=== PATIENT | male | born 1970 | race American Indian/Alaskan Native ===

== ENCOUNTER 2017-03-23 17:13 | Emergency (ER) | payer BC, MEDICAID ==
[2017-03-23 17:37] VITALS: BP 153/86
[2017-03-23] MEDS ORDERED: cefTRIAXone 250 MG, Lidocaine 1% 0.9 ML IM ONE ×2 (18:19)
[2017-03-23] MEDS ORDERED: metroNIDAZOLE 250 MG Tab PO ONE (18:19)
[2017-03-23] MEDS ORDERED: Azithromycin 250 MG Tab PO ONE (18:23)
[2017-03-23] MEDS ORDERED: Ondansetron 4 MG Tab.DIS PO ONE (18:23)
--- NOTE | 2017-03-23 18:35 | EDM.PDOC ---
Scribed by Paola Perez 03/23/17 1832 for Reynaldo Powell MD ED HPI GENERAL MEDICAL PROBLEM - General Chief Complaint: Genitourinary Problem Stated Complaint: URINARY PAIN, [id number] Time Seen by Provider: 03/23/17 17:22 Source of Information: Reports: Patient, RN, RN Notes Reviewed History Limitations: Reports: No Limitations - History of Present Illness INITIAL COMMENTS - FREE TEXT/NARRATIVE: Patient presents to the ER by POV with complaint of "urinary pain". He has had 4 days of urgency and penile pain. Quality: Reports: Ache Severity: Severe Improves with: Reports: None Worsens with: Reports: None Associated Symptoms: Reports: No Other Symptoms Penis Pain Score (Numeric/FACES): 5 - Related Data Allergies Allergy/AdvReac Type Severity Reaction Status Date / Time nafcillin AdvReac Intermediate Red rash. Verified 03/23/17 17:24 Home Meds: Home Meds Aspirin [Halfprin] 81 mg PO DAILY 04/27/13 [History] Insulin Aspart [Novolog Flexpen] 18 units SQ TID 04/27/13 [History] Insulin Detemir [Levemir Flexpen] 25 units SQ BID 04/27/13 [History] Pregabalin [Lyrica] 1 tab PO BID 03/23/17 [History] Vit D3/Folic Acid/B2/B6/B12 [Folgard Tablet] 1 tab PO DAILY 03/23/17 [History] Past Medical History Respiratory History: Reports: Other (See Below) (pneumonia. Staph infection of lungs in 2013.) Gastrointestinal History: Reports: GERD, Other (See Below) (hepatosplenomegaly. Ascites. Hep C.) Musculoskeletal History: Reports: Fracture (elbow, scapula and jaw.) Neurological History: Reports: Neuropathy, Peripheral Endocrine/Metabolic History: Reports: Diabetes, Type II Hematologic History: Reports: Other (See Below) (Vitamin D deficiency.) - Past Surgical History GI Surgical History: Reports: Appendectomy Social & Family History - Tobacco Use Smoking Status *Q: Never Smoker Years of Tobacco use: 25 Used Tobacco, but Quit: Yes Month Tobacco Last Used: february Second Hand Smoke Exposure: No - Alcohol Use Days Per Week of Alcohol Use: 0 - Recreational Drug Use Recreational Drug Use: No Drug Use in Last 12 Months: No Recreational Drug Type: Reports: Cocaine, LSD (Acid), Marijuana/Hashish, Opium, Psilocybin (Mushrooms) Recreational Drug Use Frequency: Not Used In Over 6 Months Recreational Drug Last Use: 2005 ED ROS GENERAL - Review of Systems Review Of Systems: ROS reveals no pertinent complaints other than HPI. ED EXAM, RENAL/ - Physical Exam Exam: See Below Exam Limited By: No Limitations General Appearance: Obese Respiratory/Chest: No Respiratory Distress, Lungs Clear, Normal Breath Sounds, No Accessory Muscle Use, Chest Non-Tender Cardiovascular: Normal Peripheral Pulses, Regular Rate, Rhythm, No Edema, No Gallop, No JVD, No Murmur, No Rub GI/Abdominal: Other (benign obese abdomen) Back Exam: Normal Inspection, Full Range of Motion, NT Extremities: Normal Inspection, Normal Range of Motion, Non-Tender, Normal Capillary Refill, No Pedal Edema Neurological: No Motor/Sensory Deficits Psychiatric: Normal Affect, Normal Mood Skin Exam: Warm, Dry, Intact, Normal Color, No Rash Course - Vital Signs Last Recorded V/S: Last Vital Signs Temp 37.2 C 03/23/17 17:31 Pulse 90 03/23/17 17:31 Resp 18 03/23/17 17:31 BP 153/86 H 03/23/17 17:31 Pulse Ox 99 03/23/17 17:31 - Orders/Labs/Meds Orders: Active Orders 24 hr Category Date Time Status CHLAMYDIA AND GONORRHEA BY TMA Routine Lab 03/23/17 17:22 Received Labs: Laboratory Tests 03/23/17 03/23/17 Range/Units 17:22 17:22 Urine Color Yellow (YELLOW) Urine Appearance Cloudy (CLEAR) Urine pH 5.0 (5.0-9.0) Ur Specific [place] 1.015 (1.005-1.030) Urine Protein 100 H (NEGATIVE) Urine Glucose (UA) 500 H (NEGATIVE) Urine Ketones Negative (NEGATIVE) Urine Occult Blood Moderate H (NEGATIVE) Urine Nitrite Negative (NEGATIVE) Urine Bilirubin Negative (NEGATIVE) Urine Urobilinogen 0.2 (0.2-1.0) mg/dL Ur Leukocyte Esterase Negative (NEGATIVE) Urine RBC 10-20 H /HPF Urine WBC 5-10 H (0-5/HPF) /HPF Ur Epithelial Cells Moderate H /HPF Urine Bacteria Rare (0-FEW/HPF) /HPF Urine Mucus Few H /LPF Urine Trichomonas Present H (0/HPF) /HPF Urine Opiates Screen Negative (NEGATIVE) Ur Oxycodone Screen Negative (NEGATIVE) Urine Methadone Screen Negative (NEGATIVE) Ur Barbiturates Screen Negative (NEGATIVE) U Tricyclic Antidepress Negative (NEGATIVE) Ur Phencyclidine Scrn Negative (NEGATIVE) Ur Amphetamine Screen Negative (NEGATIVE) U Methamphetamines Scrn Negative (NEGATIVE) Urine MDMA Screen Negative (NEGATIVE) U Benzodiazepines Scrn Negative (NEGATIVE) Urine Cocaine Screen Negative (NEGATIVE) U Marijuana (THC) Screen Negative (NEGATIVE) Meds: Medications Discontinued Medications Generic Name Dose Route Start Last Admin Trade Name Nic PRN Reason Stop Dose Admin Azithromycin 1,000 mg 03/23/17 18:23 Zithromax PO 03/23/17 18:24 ONETIME ONE Ceftriaxone Sodium 250 mg/ 0 mg 03/23/17 18:19 Lidocaine HCl 0.9 ml IM 03/23/17 18:20 ONETIME ONE Metronidazole 2,000 mg 03/23/17 18:19 Metronidazole PO 03/23/17 18:20 ONETIME ONE Ondansetron HCl 4 mg 03/23/17 18:23 Zofran Odt PO 03/23/17 18:24 ONETIME ONE Departure - Departure Time of Disposition: 18:28 Disposition: Home, Self-Care 01 Condition: Good Clinical Impression: Trichomoniasis, urogenital - Discharge Information Instructions: Trichomoniasis Forms: ED Department Discharge Additional Instructions: Follow up in clinic next week for urine recheck and to check on urine culture. - My Orders Last 24 Hours: My Active Orders 03/23/17 17:22 CHLAMYDIA AND GONORRHEA BY TMA Routine - Assessment/Plan Last 24 Hours: My Active Orders 03/23/17 17:22 CHLAMYDIA AND GONORRHEA BY TMA Routine I have read and agree with the documentation that has been completed regarding this visit. By signing this record, I attest that the documentation was completed in my physical presence and is an accurate record of the encounter.
== END 2017-03-23 19:05 | disposition home or self-care (01) ==
LOC: DL.ED 17:13
DX: A59.00 Urogenital trichomoniasis, unspecified (principal); E11.42 Type 2 diabetes mellitus with diabetic polyneuropathy; Z87.891 Personal history of nicotine dependence; Z79.4 Long term (current) use of insulin; Z79.82 Long term (current) use of aspirin; Z88.1 Allergy status to other antibiotic agents
CPT/HCPCS: 80305; 81001; 87491; 87591; 96372; 99283; A9270; J0696

== ENCOUNTER 2020-02-09 21:59 | Emergency (ER) | payer MEDICARE, MEDICAID ==
--- NOTE | 2020-02-09 22:13 | EDM.PDOC ---
ED HPI GENERAL MEDICAL PROBLEM - General Chief Complaint: Upper Extremity Injury/Pain Stated Complaint: SLIPPED AND FELL LANDED ON RIBS Time Seen by Provider: 02/09/20 22:11 Source of Information: Reports: Patient History Limitations: Reports: No Limitations - History of Present Illness INITIAL COMMENTS - FREE TEXT/NARRATIVE: fell onto right ribs Right Trunk Pain Score (Numeric/FACES): 7 - Related Data Allergies Allergy/AdvReac Type Severity Reaction Status Date / Time Iodine and Iodide Containing Allergy Severe Rash Verified 02/09/20 22:14 Produc chlorhexidine Allergy Intermediate Rash Verified 02/09/20 22:14 gabapentin Allergy Hives Verified 02/09/20 22:14 nafcillin AdvReac Intermediate Red rash. Verified 02/09/20 22:14 Home Meds: Home Meds Aspirin [Halfprin] 81 mg PO DAILY 04/27/13 [History] Insulin Detemir [Levemir Flexpen] 20 units SQ BID 04/27/13 [History] Allopurinol [Zyloprim] 1 tab PO DAILY 03/23/17 [History] Ascorbate Calcium [Vitamin C] 1 tab PO BID 03/23/17 [History] Fenofibric Acid (Choline) [Fenofibric Acid] 1 tab PO DAILY 03/23/17 [History] Furosemide [Lasix] 80 mg PO BID 03/23/17 [History] Magnesium Oxide 1 tab PO DAILY 03/23/17 [History] Pantoprazole Sodium 40 mg PO DAILY 03/23/17 [History] Pregabalin [Lyrica] 50 mg PO BID 03/23/17 [History] Vit D3/Folic Acid/B2/B6/B12 [Folgard Tablet] 1 tab PO DAILY 03/23/17 [History] Calcium Acetate [PhosLo] 3 cap PO TIDAC 09/21/19 [History] Metoprolol Tartrate 12.5 mg PO BID 09/21/19 [History] Pregabalin [Lyrica] 200 mg PO DAILY 09/21/19 [History] metOLazone [Metolazone] 1 tab PO DAILY 09/21/19 [History] Past Medical History HEENT History: Reports: Other (See Below) Other HEENT History: retinal neuropathy Cardiovascular History: Reports: Hypertension Respiratory History: Reports: Other (See Below) Gastrointestinal History: Reports: GERD Genitourinary History: Reports: Acute Renal Failure, Dialysis Musculoskeletal History: Reports: Fracture Neurological History: Reports: Neuropathy, Peripheral Psychiatric History: Reports: Anxiety Endocrine/Metabolic History: Reports: Diabetes, Type II Hematologic History: Reports: Other (See Below) Oncologic (Cancer) History: Reports: None Dermatologic History: Reports: None - Infectious Disease History Infectious Disease History: Reports: Chicken Pox, Hepatitis C - Past Surgical History GI Surgical History: Reports: Appendectomy Social & Family History - Family History Family Medical History: Noncontributory - Caffeine Use Caffeine Use: Reports: Soda Review of Systems - Review of Systems Review Of Systems: Comprehensive ROS is negative, except as noted in HPI. ED EXAM, GENERAL - Physical Exam Exam: See Below Exam Limited By: No Limitations General Appearance: Alert, WD/WN, Mild Distress, Other (discomfort) Ears: Hearing Grossly Normal Throat/Mouth: Normal Voice, No Airway Compromise Head: Atraumatic Neck: Non-Tender, Full Range of Motion Respiratory/Chest: No Respiratory Distress, Other (right lateral rib 6-7-8 region tender, no ecchymosis/crepitus) Cardiovascular: Regular Rate, Rhythm GI/Abdominal: Soft, Non-Tender (Male) Exam: Deferred Rectal (Males) Exam: Deferred Neurological: Alert, Oriented, Normal Cognition, Normal Gait, No Motor/Sensory Deficits Psychiatric: Flat Affect Skin Exam: Warm, Dry, Normal Color Lymphatic: No Adenopathy Course - Vital Signs Last Recorded V/S: Last Vital Signs Temp 36.3 C 02/09/20 22:10 Pulse 86 02/09/20 22:10 Resp 16 02/09/20 22:10 BP 152/73 H 02/09/20 22:10 Pulse Ox 95 02/09/20 22:10 - Re-Assessments/Exams Free Text/Narrative Re-Assessment/Exam: 02/09/20 22:52 results discussed with pt. Departure - Departure Time of Disposition: 22:52 Disposition: Home, Self-Care 01 Condition: Good Clinical Impression: Contusion of rib on right side Qualifiers: Encounter type: initial encounter Qualified Code(s): S20.211A - Contusion of right front wall of thorax, initial encounter - Discharge Information Instructions: Rib Contusion Forms: ED Department Discharge, ED Return to Work/School Form Additional Instructions: 1) avoid bending lifting straining 2) take tylenol or motrin for discomfort 3) follow up at clinic Sepsis Event Note (ED) - Evaluation Sepsis Screening Result: No Definite Risk - Focused Exam Vital Signs: Vital Signs Temp Pulse Resp BP Pulse Ox 02/09/20 22:10 36.3 C 86 16 152/73 H 95
[2020-02-09 22:16] VITALS: BP 152/73; PULSE 86
--- NOTE | 2020-02-09 22:42 | CR ---
PROCEDURE INFORMATION: Exam: XR Right Ribs with PA Chest, 3 Views Exam date and time: 02/09/2020 10:19 PM Age: 49 years old Clinical indication: Other: Bb medeiros area of pain from fall; Additional info: Fell onto it TECHNIQUE: Imaging protocol: XR Right ribs 3 views with PA chest. COMPARISON: No relevant prior studies available. FINDINGS: Tubes, catheters and devices: Right chest tunnel dialysis catheter is noted. Lungs: Lungs are clear. No infiltrates or edema. Pleural space: No pleural effusions. Heart/Mediastinum: Mild cardiomegaly. Bones/joints: Right ribs are unremarkable. No fracture. A BB marker placed at the site of focal point tenderness. There is no bony abnormality in this region. IMPRESSION: 1. No evidence of rib fracture. 2. Clear lungs and pleural space. 3. Right chest tunneled dialysis catheter.
== END 2020-02-09 22:56 | disposition home or self-care (01) ==
LOC: DL.ED 21:59
DX: S20.211A Contusion of right front wall of thorax, initial encounter (principal); I10 Essential (primary) hypertension; E11.42 Type 2 diabetes mellitus with diabetic polyneuropathy; K21.9 Gastro-esophageal reflux disease without esophagitis; Z90.49 Acquired absence of other specified parts of digestive tract; Z88.1 Allergy status to other antibiotic agents; Z88.8 Allergy status to other drugs, medicaments and biological substances; Z79.82 Long term (current) use of aspirin; Z79.899 Other long term (current) drug therapy; W01.0XXA Fall on same level from slipping, tripping and stumbling without subsequent striking against object, initial encounter
CPT/HCPCS: 71101-RT; 99282; 99283-25

== ENCOUNTER 2020-05-18 22:14 | Emergency (ER) | payer MEDICARE, MEDICAID ==
[2020-05-18 23:26] VITALS: BP 107/71; PULSE 88
[2020-05-18] MEDS: Sodium Chloride 0.9% 1,000 ML IV ONE (23:27)
[2020-05-18] MEDS: Clindamycin Phosphate 900 MG in Sodium Chloride 0.9% 100 ML IV ONE (23:28)
[2020-05-18 23:46] LABS: ANION GAP 18.8 mEq/L (7-13)
--- NOTE | 2020-05-19 00:25 | EDM.PDOC ---
ED HPI GENERAL MEDICAL PROBLEM - General Chief Complaint: Skin Complaint Stated Complaint: TEMP. 100.6 , INFECTION ON THE HANDS Time Seen by Provider: 05/19/20 00:20 Source of Information: Reports: Patient History Limitations: Reports: No Limitations - History of Present Illness INITIAL COMMENTS - FREE TEXT/NARRATIVE: c/o infection on fingers Left Hand Pain Score (Numeric/FACES): 3 Right Hand Pain Score (Numeric/FACES): 3 - Related Data Allergies Allergy/AdvReac Type Severity Reaction Status Date / Time Iodine and Iodide Containing Allergy Severe Rash Verified 05/18/20 23:12 Produc chlorhexidine Allergy Intermediate Rash Verified 05/18/20 23:12 gabapentin Allergy Hives Verified 05/18/20 23:12 nafcillin AdvReac Intermediate Red rash. Verified 05/18/20 23:12 Home Meds: Home Meds Aspirin [Halfprin] 81 mg PO DAILY 04/27/13 [History] Insulin Detemir [Levemir Flexpen] 20 units SQ BID 04/27/13 [History] Allopurinol [Zyloprim] 1 tab PO DAILY 03/23/17 [History] Ascorbate Calcium [Vitamin C] 1 tab PO BID 03/23/17 [History] Fenofibric Acid (Choline) [Fenofibric Acid] 1 tab PO DAILY 03/23/17 [History] Furosemide [Lasix] 80 mg PO BID 03/23/17 [History] Magnesium Oxide 1 tab PO DAILY 03/23/17 [History] Pantoprazole Sodium 40 mg PO DAILY 03/23/17 [History] Pregabalin [Lyrica] 50 mg PO BID 03/23/17 [History] Vit D3/Folic Acid/B2/B6/B12 [Folgard Tablet] 1 tab PO DAILY 03/23/17 [History] Calcium Acetate [PhosLo] 3 cap PO TIDAC 09/21/19 [History] Metoprolol Tartrate 12.5 mg PO BID 09/21/19 [History] Pregabalin [Lyrica] 200 mg PO DAILY 09/21/19 [History] metOLazone [Metolazone] 1 tab PO DAILY 09/21/19 [History] Past Medical History HEENT History: Reports: Other (See Below) Other HEENT History: retinal neuropathy Cardiovascular History: Reports: Hypertension Respiratory History: Reports: Other (See Below) Gastrointestinal History: Reports: GERD Genitourinary History: Reports: Acute Renal Failure, Dialysis, Diabetic Nephropathy Musculoskeletal History: Reports: Fracture Neurological History: Reports: Neuropathy, Peripheral Psychiatric History: Reports: Anxiety Endocrine/Metabolic History: Reports: Diabetes, Type II Hematologic History: Reports: Other (See Below) Oncologic (Cancer) History: Reports: None Dermatologic History: Reports: None - Infectious Disease History Infectious Disease History: Reports: Chicken Pox, Hepatitis C, MRSA - Past Surgical History GI Surgical History: Reports: Appendectomy Other GI Surgeries/Procedures: umbilical hernia Social & Family History - Family History Family Medical History: No Pertinent Family History - Tobacco Use Tobacco Use Status *Q: Never Tobacco User Second Hand Smoke Exposure: No - Caffeine Use Caffeine Use: Reports: None - Recreational Drug Use Recreational Drug Use: No ED ROS GENERAL - Review of Systems Review Of Systems: Comprehensive ROS is negative, except as noted in HPI. ED EXAM, SKIN/RASH Exam: See Below Exam Limited By: No Limitations General Appearance: Alert, WD/WN, Mild Distress, Other (discomfort) Ears: Hearing Grossly Normal Throat/Mouth: Normal Voice, No Airway Compromise Head: Atraumatic Neck: Non-Tender, Full Range of Motion Respiratory/Chest: No Respiratory Distress Cardiovascular: Regular Rate, Rhythm GI/Abdominal: Soft, Non-Tender (Male) Exam: Deferred Rectal (Males) Exam: Deferred Extremities: Other (right fingers cellulitis) Neurological: Alert, Oriented, Normal Cognition, Normal Gait, No Motor/Sensory Deficits Psychiatric: Normal Affect, Normal Mood Skin: Warm, Dry, Normal Color Location, Skin: Upper Extremity, Right Characteristics: Erythematous Associated features: Tenderness, Swelling, Inflammation. No: Lymphangitis Lymphatic: No Adenopathy Course - Vital Signs Last Recorded V/S: Last Vital Signs Temp 38.6 C H 05/18/20 23:12 Pulse 88 05/18/20 23:12 Resp 20 05/18/20 23:12 BP 107/71 05/18/20 23:12 Pulse Ox 94 L 05/18/20 23:12 - Orders/Labs/Meds Orders: Active Orders 24 hr Category Date Time Status CULTURE BLOOD [BC] Stat Lab 05/18/20 23:20 Received CULTURE WOUND [RM] Stat Lab 05/18/20 23:19 Received Labs: Laboratory Tests 05/18/20 05/18/20 05/18/20 Range/Units 23:20 23:20 23:20 WBC 7.5 (5.0-10.0) 10^3/uL RBC 3.23 L (4.6-6.2) 10^6/uL Hgb 10.5 L (14.0-18.0) g/dL Hct 30.9 L (40.0-54.0) % MCV 95.7 (80-100) fL MCH 32.5 (27.0-34.0) pg MCHC 34.0 (33.0-35.0) g/dL Plt Count 116 L (150-450) 10^3/uL Neut % (Auto) 82.2 H (42.2-75.2) % Lymph % (Auto) 6.3 L (20.5-50.1) % Sharp % (Auto) 11.3 H (2-8) % Eos % (Auto) 0.1 L (1.0-3.0) % Baso % (Auto) 0.1 (0.0-1.0) % Add Manual Diff Yes Neutrophils % (Manual) 75 (42-75) % Band Neutrophils % 10 % Lymphocytes % (Manual) 5 L (20-50) % Monocytes % (Manual) 10 H (2-8) % Sodium 133 L (136-145) mmol/L Potassium 3.8 (3.5-5.1) mmol/L Chloride 94 L (98-107) mmol/L Carbon Dioxide 24 (21-32) mmol/L Anion Gap 18.8 H (7-13) mEq/L BUN 51 H (7-18) mg/dL Creatinine 9.75 H* (0.70-1.30) mg/dL Est Cr Clr Drug Dosing 8.38 mL/min Estimated GFR (MDRD) 6 BUN/Creatinine Ratio 5.2 (No establ ref range) Glucose 103 H (74-99) mg/dL Lactic Acid 1.0 (0.4-2.0) mmol/L Calcium 6.9 L (8.5-10.1) mg/dL Total Bilirubin 0.5 (0.2-1.0) mg/dL AST 23 (15-37) U/L ALT 19 (16-63) U/L Alkaline Phosphatase 67 (46-116) U/L Total Protein 7.6 (6.4-8.2) g/dL Albumin 3.4 (3.4-5.0) g/dL Globulin 4.2 Albumin/Globulin Ratio 0.8 Meds: Medications Discontinued Medications Generic Name Dose Route Start Last Admin Trade Name Nic PRN Reason Stop Dose Admin Clindamycin Phosphate 900 mg/ 106 mls @ 200 mls/hr 05/18/20 23:12 05/18/20 23:28 Sodium Chloride IV 05/18/20 23:43 200 mls/hr ONETIME ONE Administration Sodium Chloride 1,000 mls @ 999 mls/hr 05/18/20 23:12 05/18/20 23:27 Normal Saline IV 05/19/20 00:12 999 mls/hr .BOLUS ONE Administration - Re-Assessments/Exams Free Text/Narrative Re-Assessment/Exam: 05/19/20 00:23 results discussed with pt Departure - Departure Time of Disposition: 00:24 Disposition: Home, Self-Care 01 Condition: Good Clinical Impression: Cellulitis Qualifiers: Site of cellulitis: extremity Site of cellulitis of extremity: upper extremity Laterality: right Qualified Code(s): L03.113 - Cellulitis of right upper limb - Discharge Information Instructions: Cellulitis, Adult, [id number] Additional Instructions: 1) follow up at clinic Thursday rx given; clindamycin 300mg qid x 40 Sepsis Event Note (ED) - Evaluation Sepsis Screening Result: No Definite Risk - Focused Exam Vital Signs: Vital Signs Temp Pulse Resp BP Pulse Ox 05/18/20 23:12 38.6 C H 88 20 107/71 94 L - My Orders Last 24 Hours: My Active Orders 05/18/20 23:19 CULTURE WOUND [RM] Stat 05/18/20 23:20 CULTURE BLOOD [BC] Stat - Assessment/Plan Last 24 Hours: My Active Orders 05/18/20 23:19 CULTURE WOUND [RM] Stat 05/18/20 23:20 CULTURE BLOOD [BC] Stat
== END 2020-05-19 01:00 | disposition home or self-care (01) ==
LOC: DL.ED 22:14
DX: L03.011 Cellulitis of right finger (principal); I10 Essential (primary) hypertension; K21.9 Gastro-esophageal reflux disease without esophagitis; E11.21 Type 2 diabetes mellitus with diabetic nephropathy; E11.42 Type 2 diabetes mellitus with diabetic polyneuropathy; Z88.8 Allergy status to other drugs, medicaments and biological substances; Z88.1 Allergy status to other antibiotic agents; Z79.82 Long term (current) use of aspirin; Z79.4 Long term (current) use of insulin; Z79.899 Other long term (current) drug therapy
CPT/HCPCS: 36415; 80053; 83605; 85025; 87040; 87070; 87077; 87186; 96365; 99283; J3490; J7030; J7050

== ENCOUNTER 2021-05-27 20:18 | Inpatient (IN) | payer MEDICARE, MEDICAID ==
[2021-05-27] MEDS ORDERED: Furosemide 40 MG/4 ML VIAL IVPUSH ONE (20:31)
--- NOTE | 2021-05-27 20:53 | EDM.PDOC ---
ED HPI GENERAL MEDICAL PROBLEM - General Stated Complaint: AMBULANCE Time Seen by Provider: 05/27/21 20:25 Source of Information: Reports: Patient, EMS, RN History Limitations: Reports: No Limitations - History of Present Illness INITIAL COMMENTS - FREE TEXT/NARRATIVE: ED via [facility], tiered response with [facility] Patient c/o SOB worsening past 2 days. Has not has dialysis since last Thursday. Missed 2 runs, states had diarrhea so called and cancelled. No fever, some thick mucus with cough. Sores over body from "high phosphorus. Reports taking medications. Reports smoking more past few days. Admits feeling some panic tonight with SOB. - Related Data Allergies Allergy/AdvReac Type Severity Reaction Status Date / Time Iodine and Iodide Containing Allergy Severe Rash Verified 05/27/21 20:45 Produc chlorhexidine Allergy Intermediate Rash Verified 05/27/21 20:45 gabapentin Allergy Hives Verified 05/27/21 20:45 iohexol [From Omnipaque] Allergy Rash Verified 05/27/21 20:45 nafcillin AdvReac Intermediate Red rash. Verified 05/27/21 20:45 Home Meds: Home Meds Aspirin [Halfprin] 81 mg PO DAILY 04/27/13 [History] Allopurinol [Zyloprim] 100 mg PO DAILY 03/23/17 [History] Fenofibric Acid (Choline) [Fenofibric Acid] 1 tab PO BEDTIME 03/23/17 [History] Furosemide [Lasix] 80 mg PO BID 03/23/17 [History] Pantoprazole Sodium 40 mg PO BID 03/23/17 [History] Pregabalin [Lyrica] 100 mg PO .RADHA SHAY, SAT 03/23/17 [History] Calcium Acetate [PhosLo] 2,001 mg PO TID 09/21/19 [History] Pregabalin [Lyrica] 100 mg PO BID 09/21/19 [History] metOLazone [Metolazone] 2.5 mg PO DAILY 09/21/19 [History] Acetaminophen [Tylenol Arthritis Pain] 650 mg PO Q8H 08/03/20 [History] Cholecalciferol (Vitamin D3) [Vitamin D3] 1,000 units PO DAILY 08/03/20 [History] Cyanocobalamin/Folic AC/Vit B6 [B Complex-Folic Acid] 1 tab PO DAILY 08/03/20 [History] Magnesium Oxide [Mag-Oxide] 800 mg PO DAILY 08/03/20 [History] Midodrine 5 mg PO .LAURITA, RONNIE, SAT 08/03/20 [History] oxyCODONE HCl [Oxycodone HCl] 5 mg PO Q6H 08/03/20 [History] Past Medical History HEENT History: Reports: Impaired Vision, Other (See Below) Other HEENT History: retinal neuropathy Cardiovascular History: Reports: Hypertension Respiratory History: Reports: Pneumonia, Recurrent Gastrointestinal History: Reports: GERD Genitourinary History: Reports: Acute Renal Failure, Dialysis, Diabetic N ephropathy Musculoskeletal History: Reports: Fracture Neurological History: Reports: Neuropathy, Peripheral Psychiatric History: Reports: None Endocrine/Metabolic History: Reports: Diabetes, Type II Hematologic History: Reports: Anemia, Blood Transfusion(s) Immunologic History: Reports: None Oncologic (Cancer) History: Reports: None Dermatologic History: Reports: None - Infectious Disease History Infectious Disease History: Reports: Chicken Pox, Hepatitis C, MRSA - Past Surgical History HEENT Surgical History: Reports: None Cardiovascular Surgical History: Reports: None Respiratory Surgical History: Reports: None GI Surgical History: Reports: Appendectomy, Other (See Below) Other GI Surgeries/Procedures: umbilical hernia. 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 ED EXAM, GENERAL - Physical Exam Exam: See Below Exam Limited By: No Limitations General Appearance: Alert, Anxious, Mild Distress, Obese Eye Exam: Bilateral Eye: EOMI, PERRL Ears: Normal External Exam, Normal TMs Nose: Normal Inspection Throat/Mouth: Normal Inspection, Normal Oropharynx Head: Atraumatic, Normocephalic Neck: Normal Inspection, Supple, Full Range of Motion Respiratory/Chest: No Respiratory Distress, Decreased Breath Sounds Cardiovascular: Normal Peripheral Pulses, Regular Rate, Rhythm GI/Abdominal: Normal Bowel Sounds, Soft. 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 ) Neurological: Alert, Oriented Psychiatric: Normal Affect, Anxious Skin Exam: Warm, Dry, Intact, Wound/Incision (right toes, multiple scaley raised macular lesions.). No: Normal Color Course - Vital Signs Last Recorded V/S: Last Vital Signs Temp 97.6 F 05/27/21 21:33 Pulse 122 H 05/27/21 21:33 Resp 28 H 05/27/21 21:33 BP 149/120 H 05/27/21 21:33 Pulse Ox 100 05/27/21 21:33 - Orders/Labs/Meds Orders: Active Orders 24 hr Category Date Time Status Blood Glucose Check, Bedside [RC] ONETIME Care 05/27/21 21:48 Active CULTURE BLOOD [BC] Stat Lab 05/27/21 21:05 Results Medication Orders Acetaminophen (Acetaminophen 325 Mg Tab) 650 mg PO Q4H PRN PRN Reason: Pain (Mild 1-3)/fever Last Admin: 05/28/21 01:19 Dose: 650 mg Documented by: TUAN Dextrose/Water (50% Dextrose In Water 50 Ml Syringe) 25 ml IVPUSH ASDIRECTED PRN PRN Reason: Hypoglycemia BS<70 Heparin Sodium (Porcine) (Heparin Sodium 5,000 Units/Ml Vial) 5,000 units SUBCUT Q8HR [place] Sodium Bicarbonate 100 meq/ (Dextrose/Water) 1,100 mls @ 75 mls/hr IV CONTINUOUS ONE Stop: 05/28/21 12:24 Last Admin: 05/28/21 00:20 Dose: Not Given Documented by: TUAN Furosemide 100 mg/ Sodium (Chloride) 100 mls @ 10 mls/hr IV CONTINUOUS [place] Last Admin: 05/28/21 01:09 Dose: 10 mls/hr Documented by: TUAN Piperacillin Sod/Tazobactam (Sod 2.25 gm/ Sodium Chloride) 50 mls @ 100 mls/hr IV Q6H [place] Vancomycin HCl 1.5 gm/ Premix 300 mls @ 200 mls/hr IV ONETIME ONE Stop: 05/28/21 02:29 Last Admin: 05/28/21 01:11 Dose: 200 mls/hr Documented by: TUAN Insulin Human Lispro (Insulin Lispro 100 Units/Ml 3 Ml Vial) 0 unit SUBCUT WITHMEALSANDBED [facility]; Protocol Ondansetron HCl (Ondansetron 4 Mg/2 Ml Sdv) 4 mg IVPUSH Q6H PRN PRN Reason: Nausea/Vomiting Oxycodone HCl (Oxycodone 5 Mg Tab) 5 mg PO Q6H PRN PRN Reason: mod to severe pain Last Admin: 05/28/21 01:18 Dose: 5 mg Documented by: TUAN Pantoprazole Sodium (Pantoprazole 40 Mg Tab.Cr) 40 mg PO BID [facility] Pregabalin (Pregabalin 50 Mg Cap) 100 mg PO BID [facility] Sodium Chloride (Sodium Chloride 0.9% 10 Ml Syringe) 10 ml FLUSH 0900,2100 [facility] Vancomycin HCl (Pharmacy To Dose - Vancomycin) 1 dose .XX ASDIRECTED [facility] Labs: Laboratory Tests 05/27/21 05/27/21 05/27/21 Range/Units 20:57 20:57 20:57 WBC 20.4 H (5.0-10.0) 10^3/uL RBC 4.06 L (4.6-6.2) 10^6/uL Hgb 12.3 L D (14.0-18.0) g/dL Hct 37.9 L (40.0-54.0) % MCV 93.3 (80-100) fL MCH 30.3 (27.0-34.0) pg MCHC 32.5 L (33.0-35.0) g/dL Plt Count 120 L (150-450) 10^3/uL Neut % (Auto) 90.5 H (42.2-75.2) % Lymph % (Auto) 3.2 L (20.5-50.1) % [place] % (Auto) 6.2 (2-8) % Eos % (Auto) 0.0 L (1.0-3.0) % Baso % (Auto) 0.1 (0.0-1.0) % Add Manual Diff Yes Neutrophils % (Manual) 53 (42-75) % Band Neutrophils % 34 % Lymphocytes % (Manual) 8 L (20-50) % Atypical Lymphs % 0 % Monocytes % (Manual) 5 (2-8) % Anisocytosis 1+ slight PT (9.0-12.0) SEC INR (0.9-1.2) D-Dimer, Quantitative (0-400) ng/mL Sodium 120 L D (136-145) mmol/L Potassium 6.1 H D (3.5-5.1) mmol/L Chloride 86 L D (98-107) mmol/L Carbon Dioxide 11 L (21-32) mmol/L Anion Gap 29.1 H (7-13) mEq/L BUN 75 H D (7-18) mg/dL Creatinine 16.35 H* D (0.70-1.30) mg/dL Est Cr Clr Drug Dosing TNP Estimated GFR (MDRD) 3 BUN/Creatinine Ratio 4.6 (No establ ref range) Glucose 65 L (70-99) mg/dL Lactic Acid 2.9 H* (0.4-2.0) mmol/L Calcium 7.0 L (8.5-10.1) mg/dL Phosphorus (2.6-4.7) mg/dL Magnesium 1.6 L (1.8-2.4) mg/dL Total Bilirubin 0.5 (0.2-1.0) mg/dL AST 41 H (15-37) U/L ALT 23 (16-63) U/L Alkaline Phosphatase 65 (46-116) U/L Troponin I High Sens 30 (<=76) pg/mL B-Natriuretic Peptide 355 H (0-100) pg/ml Total Protein 7.4 (6.4-8.2) g/dL Albumin 2.8 L (3.4-5.0) g/dL Globulin 4.6 Albumin/Globulin Ratio 0.61 Amylase 22 L (25-115) U/L Lipase 63 L (73-393) U/L Ethyl Alcohol < 3 (0) mg/dL Influenza Type A RNA (NEGATIVE) Influenza Type B RNA (NEGATIVE) SARS-CoV-2 RNA (BRENDA) (NEGATIVE) 05/27/21 05/27/21 05/27/21 Range/Units 20:57 21:05 21:05 WBC (5.0-10.0) 10^3/uL RBC (4.6-6.2) 10^6/uL Hgb (14.0-18.0) g/dL Hct (40.0-54.0) % MCV (80-100) fL MCH (27.0-34.0) pg MCHC (33.0-35.0) g/dL Plt Count (150-450) 10^3/uL Neut % (Auto) (42.2-75.2) % Lymph % (Auto) (20.5-50.1) % [place] % (Auto) (2-8) % Eos % (Auto) (1.0-3.0) % Baso % (Auto) (0.0-1.0) % Add Manual Diff Neutrophils % (Manual) (42-75) % Band Neutrophils % % Lymphocytes % (Manual) (20-50) % Atypical Lymphs % % Monocytes % (Manual) (2-8) % Anisocytosis PT 12.0 (9.0-12.0) SEC INR 1.2 (0.9-1.2) D-Dimer, Quantitative 2450 H (0-400) ng/mL Sodium (136-145) mmol/L Potassium (3.5-5.1) mmol/L Chloride (98-107) mmol/L Carbon Dioxide (21-32) mmol/L Anion Gap (7-13) mEq/L BUN (7-18) mg/dL Creatinine (0.70-1.30) mg/dL Est Cr Clr Drug Dosing Estimated GFR (MDRD) BUN/Creatinine Ratio (No establ ref range) Glucose (70-99) mg/dL Lactic Acid (0.4-2.0) mmol/L Calcium (8.5-10.1) mg/dL Phosphorus 8.6 H* (2.6-4.7) mg/dL Magnesium (1.8-2.4) mg/dL Total Bilirubin (0.2-1.0) mg/dL AST (15-37) U/L ALT (16-63) U/L Alkaline Phosphatase (46-116) U/L Troponin I High Sens (<=76) pg/mL B-Natriuretic Peptide (0-100) pg/ml Total Protein (6.4-8.2) g/dL Albumin (3.4-5.0) g/dL Globulin Albumin/Globulin Ratio Amylase (25-115) U/L Lipase (73-393) U/L Ethyl Alcohol (0) mg/dL Influenza Type A RNA Positive H (NEGATIVE) Influenza Type B RNA Negative (NEGATIVE) SARS-CoV-2 RNA (BRENDA) Negative (NEGATIVE) Meds: Medications Generic Name Dose Route Start Last Admin Trade Name Freq PRN Reason Stop Dose Admin Acetaminophen 650 mg 05/27/21 23:11 05/28/21 01:19 Acetaminophen 325 Mg Tab PO 650 mg Q4H PRN Administration Pain (Mild 1-3)/fever Dextrose/Water 25 ml 05/27/21 23:09 50% Dextrose In Water 50 Ml Syringe IVPUSH ASDIRECTED PRN Hypoglycemia BS<70 Heparin Sodium (Porcine) 5,000 units 05/28/21 06:00 Heparin Sodium 5,000 Units/Ml Vial SUBCUT Q8HR [facility] Sodium Bicarbonate 100 meq/ 1,100 mls @ 75 mls/hr 05/27/21 23:08 05/28/21 00:20 Dextrose/Water IV 05/28/21 12:24 Not Given CONTINUOUS ONE Furosemide 100 mg/ Sodium 100 mls @ 10 mls/hr 05/27/21 23:15 05/28/21 01:09 Chloride IV 10 mls/hr CONTINUOUS [facility] Administration Piperacillin Sod/Tazobactam 50 mls @ 100 mls/hr 05/28/21 08:00 Sod 2.25 gm/ Sodium Chloride IV Q6H [place] Vancomycin HCl 1.5 gm/ Premix 300 mls @ 200 mls/hr 05/28/21 01:00 05/28/21 01:11 IV 05/28/21 02:29 200 mls/hr ONETIME ONE Administration Insulin Human Lispro 0 unit 05/28/21 08:00 Insulin Lispro 100 Units/Ml 3 Ml Vial SUBCUT WITHMEALSANDBED [facility] Protocol Ondansetron HCl 4 mg 05/27/21 23:11 Ondansetron 4 Mg/2 Ml Sdv IVPUSH Q6H PRN Nausea/Vomiting Oxycodone HCl 5 mg 05/27/21 23:10 05/28/21 01:18 Oxycodone 5 Mg Tab PO 5 mg Q6H PRN Administration mod to severe pain Pantoprazole Sodium 40 mg 05/28/21 09:00 Pantoprazole 40 Mg Tab.Cr PO BID [facility] Pregabalin 100 mg 05/28/21 09:00 Pregabalin 50 Mg Cap PO BID [facility] Sodium Chloride 10 ml 05/28/21 09:00 Sodium Chloride 0.9% 10 Ml Syringe FLUSH 0900,2100 [facility] Vancomycin HCl 1 dose 05/27/21 23:15 Pharmacy To Dose - Vancomycin .XX ASDIRECTED [facility] Discontinued Medications Generic Name Dose Route Start Last Admin Trade Name Freq PRN Reason Stop Dose Admin Dextrose/Water 50 ml 05/27/21 21:32 05/27/21 21:35 50% Dextrose In Water 50 Ml Syringe IVPUSH 05/27/21 21:33 50 ml ONETIME ONE Administration Furosemide 40 mg 05/27/21 20:31 05/27/21 21:05 Furosemide 40 Mg/4 Ml Vial IVPUSH 05/27/21 20:32 40 mg ONETIME ONE Administration Sodium Bicarbonate 100 meq/ 1,100 mls @ 100 mls/hr 05/27/21 21:45 05/27/21 22:03 Dextrose/Water IV 05/28/21 08:44 100 mls/hr ONETIME ONE Administration Piperacillin Sod/Tazobactam 50 mls @ 100 mls/hr 05/28/21 00:15 05/28/21 01:33 Sod 2.25 gm/ Sodium Chloride IV 05/28/21 00:44 100 mls/hr ONETIME ONE Administration Sodium Bicarbonate 50 meq 05/27/21 21:50 05/27/21 22:03 Sodium Bicarbonate 8.4% 50 Meq/50 Ml Syringe IVPUSH 05/27/21 21:51 50 meq ONETIME ONE Administration Sodium Bicarbonate Confirm 05/27/21 22:10 05/27/21 22:25 Sodium Bicarbonate 8.4% 50 Meq/50 Ml Sdv Administered 05/27/21 22:11 Not Given Dose 50 meq .ROUTE .STK-MED ONE Sodium Bicarbonate Confirm 05/27/21 22:14 05/27/21 22:25 Sodium Bicarbonate 8.4% 50 Meq/50 Ml Sdv Administered 05/27/21 22:15 Not Given Dose 50 meq .ROUTE .STK-MED ONE - Re-Assessments/Exams Free Text/Narrative Re-Assessment/Exam: Tx attempted, no bed available in [facility], [place] or [place]. Dr Joyner here to assess patient. Patient desires full code status with intubation if necessa ry. Appears less restless when placed on bi pap by RT. Departure - Departure Time of Disposition: 23:00 Disposition: Admitted As Inpatient 65 Condition: Critical Clinical Impression: Metabolic acidosis, Dialysis patient, noncompliant, PVD (peripheral vascular disease), Gangrenous toe, Hyperkalemia, Influenza A Volume overload Qualifiers: Hypervolemia type: unspecified Qualified Code(s): E87.70 - Fluid overload, unspecified - Discharge Information *PRESCRIPTION DRUG MONITORING PROGRAM REVIEWED*: No *COPY OF PRESCRIPTION DRUG MONITORING REPORT IN PATIENT JIM: No Sepsis Event Note (ED) - Focused Exam Vital Signs: Vital Signs Temp Pulse Resp BP BP Pulse Ox 05/27/21 21:33 97.6 F 122 H 28 H 149/120 H 100 05/27/21 21:26 96 05/27/21 20:31 120 H 28 H 104/71 15 L - My Orders Last 24 Hours: My Active Orders 05/27/21 21:05 CULTURE BLOOD [BC] Stat 05/27/21 21:48 Blood Glucose Check, Bedside [RC] ONETIME - Assessment/Plan Last 24 Hours: My Active Orders 05/27/21 21:05 CULTURE BLOOD [BC] Stat 05/27/21 21:48 Blood Glucose Check, Bedside [RC] ONETIME
--- NOTE | 2021-05-27 21:10 | CR ---
PROCEDURE INFORMATION: Exam: XR Chest Exam date and time: 05/27/2021 8:43 PM Age: 51 years old Clinical indication: Other: SOB missed dialysis, TECHNIQUE: Imaging protocol: XR of the chest. Views: 1 view. COMPARISON: No relevant prior studies available. FINDINGS: Tubes, catheters and devices: Right IJ dialysis catheter is well positioned. Lungs: Increased interstitial lung markings more prominent in the left lung than the right. There is bilateral disease, however. This is likely fluid overload in a patient with renal failure. Pleural spaces: No pleural effusion. Heart/Mediastinum: Normal heart size. Bones/joints: Degenerative thoracic spine disease. IMPRESSION: 1. Increased interstitial markings bilaterally likely representing fluid overload or interstitial edema. 2. Right IJ/chest dialysis catheter well positioned. 3. No pleural effusion.
[2021-05-27] MEDS ORDERED: 50% Dextrose in Water 50 ML Syringe IVPUSH ONE (21:32)
[2021-05-27 21:36] LABS: ANION GAP 29.1 mEq/L (7-13); CHLORIDE,CL 86 mmol/L (98-107); SODIUM,NA 120 mmol/L (136-145)
[2021-05-27] MEDS ORDERED: Sodium Bicarbonate 100 MEQ in Dextrose 5% in Water 1,000 ML IV ONE ×2 (21:45)
[2021-05-27] MEDS ORDERED: Sodium Bicarbonate 8.4% 50 MEQ/50 ML Syringe IVPUSH ONE (21:50)
[2021-05-27 21:52] LABS: CORONAVIRUS COVID-19 NAA NEGATIVE (NEGATIVE)
[2021-05-27] MEDS ORDERED: Sodium Bicarbonate 8.4% 50 MEQ/50 ML SDV ONE ×2 (22:10→22:14)
[2021-05-27] MEDS ORDERED: 50% Dextrose in Water 50 ML Syringe IVPUSH PRN (23:09)
[2021-05-27] MEDS ORDERED: oxyCODONE 5 MG Tab PO PRN (23:10)
[2021-05-27] MEDS ORDERED: Furosemide 100 MG in Sodium Chloride 0.9% 90 ML IV SCH (23:15)
--- NOTE | 2021-05-27 23:30 | PCM.HP ---
H&P History of Present Illness - General Date of Service: 05/27/21 Admit Problem/Dx: Admission Diagnosis/Problem Admission Diagnosis/Problem Metabolic acidosis Source of Information: Patient, Provider - History of Present Illness Initial Comments - Free Text/Narative: h/o esrd on HD, dm, neuropathy, peripheral vascular dx, s/p multiple toe amputations developed diarrhea a few days ago due to diarrhea missed the last two HD [place] came [place] with c/o sob, also noted r. foot 1st and 3rd toe discolorations no associated pain but feet is cold - Related Data Allergies/Adverse Reactions: Allergies Allergy/AdvReac Type Severity Reaction Status Date / Time Iodine and Iodide Containing Allergy Severe Rash Verified 05/27/21 20:45 Produc chlorhexidine Allergy Intermediate Rash Verified 05/27/21 20:45 gabapentin Allergy Hives Verified 05/27/21 20:45 iohexol [From Omnipaque] Allergy Rash Verified 05/27/21 20:45 nafcillin AdvReac Intermediate Red rash. Verified 05/27/21 20:45 Home Medications: Home Meds Aspirin [Halfprin] 81 mg PO DAILY 04/27/13 [History] Allopurinol [Zyloprim] 100 mg PO DAILY 03/23/17 [History] Fenofibric Acid (Choline) [Fenofibric Acid] 1 tab PO BEDTIME 03/23/17 [History] Furosemide [Lasix] 80 mg PO BID 03/23/17 [History] Pantoprazole Sodium 40 mg PO BID 03/23/17 [History] Pregabalin [Lyrica] 100 mg PO .RADHA SHAY, SAT 03/23/17 [History] Calcium Acetate [PhosLo] 2,001 mg PO TID 09/21/19 [History] Pregabalin [Lyrica] 100 mg PO BID 09/21/19 [History] metOLazone [Metolazone] 2.5 mg PO DAILY 09/21/19 [History] Acetaminophen [Tylenol Arthritis Pain] 650 mg PO Q8H 08/03/20 [History] Cholecalciferol (Vitamin D3) [Vitamin D3] 1,000 units PO DAILY 08/03/20 [Histor y] Cyanocobalamin/Folic AC/Vit B6 [B Complex-Folic Acid] 1 tab PO DAILY 08/03/20 [History] Magnesium Oxide [Mag-Oxide] 800 mg PO DAILY 08/03/20 [History] Midodrine 5 mg PO .TUNICKO, RONNIE, SAT 08/03/20 [History] oxyCODONE HCl [Oxycodone HCl] 5 mg PO Q6H 08/03/20 [History] Past Medical History HEENT History: Reports: Impaired Vision, Other (See Below) Other HEENT History: retinal neuropathy Cardiovascular History: Reports: Hypertension Respiratory History: Reports: Pneumonia, Recurrent Gastrointestinal History: Reports: GERD Genitourinary History: Reports: Acute Renal Failure, Dialysis, Diabetic Nephropathy Musculoskeletal History: Reports: Fracture Neurological History: Reports: Neuropathy, Peripheral Psychiatric History: Reports: None Endocrine/Metabolic History: Reports: Diabetes, Type II Hematologic History: Reports: Anemia, Blood Transfusion(s) Immunologic History: Reports: None Oncologic (Cancer) History: Reports: None Dermatologic History: Reports: None - Infectious Disease History Infectious Disease History: Reports: Chicken Pox, Hepatitis C, MRSA - Past Surgical History HEENT Surgical History: Reports: None Cardiovascular Surgical History: Reports: None Respiratory Surgical History: Reports: None GI Surgical History: Reports: Appendectomy, Other (See Below) Other GI Surgeries/Procedures: umbilical hernia. parencethesis Endocrine Surgical History: Reports: None Neurological Surgical History: Reports: None Musculoskeletal Surgical History: Reports: Amputation Other Musculoskeletal Surgeries/Procedures:: Below knee amputation L) leg. amputation of 3,4,5 finger of R) hand Oncologic Surgical History: Reports: None Dermatological Surgical History: Reports: None Social & Family History - Family History Family Medical History: No Pertinent Family History - Tobacco Use Tobacco Use Status *Q: Current Every Day Tobacco User Years of Tobacco use: 40 Packs/Tins Daily: 0.5 - Caffeine Use Caffeine Use: Reports: Coffee, Energy Drinks Caffeine Use Comment: 3 cups daily - Recreational Drug Use Recreational Drug Use: Yes Recreational Drug Type: Reports: Marijuana/Hashish H&P Review of Systems - Review of Systems: Review Of Systems: See Below General: Reports: Fever (subjective) Pulmonary: Reports: Shortness of Breath. Denies: Wheezing Cardiovascular: Denies: Chest Pain, Palpitations, Edema Gastrointestinal: Denies: Abdominal Pain Skin: Reports: Other (r. 1st toe ) Psychiatric: Denies: Confusion Exam - Exam Exam: See Below - Vital Signs Vital Signs: Last Vital Signs Temp 97.6 F 05/27/21 21:33 Pulse 122 H 05/27/21 21:33 Resp 28 H 05/27/21 21:33 BP 149/120 H 05/27/21 21:33 Pulse Ox 100 05/27/21 21:33 Weight: 217 lb 14.4 oz - Exam Quality Assessment: Other (bipap) General: Alert, Oriented Lungs: Decreased Breath Sounds. No: Wheezing Cardiovascular: Regular Rate, Regular Rhythm GI/Abdominal Exam: Normal Bowel Sounds, Soft, Non-Tender Extremities: No Pedal Edema, Other (multiple finger amputations, left BKA, r. 1st and 3rd toe discoloration ) - Patient Data Lab Results Last 24 hrs: Laboratory Results - last 24 hr 05/27/21 05/27/21 05/27/21 Range/Units 20:57 20:57 20:57 WBC 20.4 H (5.0-10.0) 10^3/uL RBC 4.06 L (4.6-6.2) 10^6/uL Hgb 12.3 L D (14.0-18.0) g/dL Hct 37.9 L (40.0-54.0) % MCV 93.3 (80-100) fL MCH 30.3 (27.0-34.0) pg MCHC 32.5 L (33.0-35.0) g/dL Plt Count 120 L (150-450) 10^3/uL Neut % (Auto) 90.5 H (42.2-75.2) % Lymph % (Auto) 3.2 L (20.5-50.1) % [place] % (Auto) 6.2 (2-8) % Eos % (Auto) 0.0 L (1.0-3.0) % Baso % (Auto) 0.1 (0.0-1.0) % Add Manual Diff Yes Neutrophils % (Manual) 53 (42-75) % Band Neutrophils % 34 % Lymphocytes % (Manual) 8 L (20-50) % Atypical Lymphs % 0 % Monocytes % (Manual) 5 (2-8) % Anisocytosis 1+ slight PT (9.0-12.0) SEC INR (0.9-1.2) D-Dimer, Quantitative (0-400) ng/mL Sodium 120 L D (136-145) mmol/L Potassium 6.1 H D (3.5-5.1) mmol/L Chloride 86 L D (98-107) mmol/L Carbon Dioxide 11 L (21-32) mmol/L Anion Gap 29.1 H (7-13) mEq/L BUN 75 H D (7-18) mg/dL Creatinine 16.35 H* D (0.70-1.30) mg/dL Est Cr Clr Drug Dosing TNP Estimated GFR (MDRD) 3 BUN/Creatinine Ratio 4.6 (No establ ref range) Glucose 65 L (70-99) mg/dL Lactic Acid 2.9 H* (0.4-2.0) mmol/L Calcium 7.0 L (8.5-10.1) mg/dL Phosphorus (2.6-4.7) mg/dL Magnesium 1.6 L (1.8-2.4) mg/dL Total Bilirubin 0.5 (0.2-1.0) mg/dL AST 41 H (15-37) U/L ALT 23 (16-63) U/L Alkaline Phosphatase 65 (46-116) U/L Troponin I High Sens 30 (<=76) pg/mL B-Natriuretic Peptide 355 H (0-100) pg/ml Total Protein 7.4 (6.4-8.2) g/dL Albumin 2.8 L (3.4-5.0) g/dL Globulin 4.6 Albumin/Globulin Ratio 0.61 Amylase 22 L (25-115) U/L Lipase 63 L (73-393) U/L Ethyl Alcohol < 3 (0) mg/dL Influenza Type A RNA (NEGATIVE) Influenza Type B RNA (NEGATIVE) SARS-CoV-2 RNA (BRENDA) (NEGATIVE) 05/27/21 05/27/21 05/27/21 Range/Units 20:57 21:05 21:05 WBC (5.0-10.0) 10^3/uL RBC (4.6-6.2) 10^6/uL Hgb (14.0-18.0) g/dL Hct (40.0-54.0) % MCV (80-100) fL MCH (27.0-34.0) pg MCHC (33.0-35.0) g/dL Plt Count (150-450) 10^3/uL Neut % (Auto) (42.2-75.2) % Lymph % (Auto) (20.5-50.1) % [place] % (Auto) (2-8) % Eos % (Auto) (1.0-3.0) % Baso % (Auto) (0.0-1.0) % Add Manual Diff Neutrophils % (Manual) (42-75) % Band Neutrophils % % Lymphocytes % (Manual) (20-50) % Atypical Lymphs % % Monocytes % (Manual) (2-8) % Anisocytosis PT 12.0 (9.0-12.0) SEC INR 1.2 (0.9-1.2) D-Dimer, Quantitative 2450 H (0-400) ng/mL Sodium (136-145) mmol/L Potassium (3.5-5.1) mmol/L Chloride (98-107) mmol/L Carbon Dioxide (21-32) mmol/L Anion Gap (7-13) mEq/L BUN (7-18) mg/dL Creatinine (0.70-1.30) mg/dL Est Cr Clr Drug Dosing Estimated GFR (MDRD) BUN/Creatinine Ratio (No establ ref range) Glucose (70-99) mg/dL Lactic Acid (0.4-2.0) mmol/L Calcium (8.5-10.1) mg/dL Phosphorus 8.6 H* (2.6-4.7) mg/dL Magnesium (1.8-2.4) mg/dL Total Bilirubin (0.2-1.0) mg/dL AST (15-37) U/L ALT (16-63) U/L Alkaline Phosphatase (46-116) U/L Troponin I High Sens (<=76) pg/mL B-Natriuretic Peptide (0-100) pg/ml Total Protein (6.4-8.2) g/dL Albumin (3.4-5.0) g/dL Globulin Albumin/Globulin Ratio Amylase (25-115) U/L Lipase (73-393) U/L Ethyl Alcohol (0) mg/dL Influenza Type A RNA Positive H (NEGATIVE) Influenza Type B RNA Negative (NEGATIVE) SARS-CoV-2 RNA (BRENDA) Negative (NEGATIVE) Result Diagrams: 05/27/21 20:57 05/27/21 20:57 Beny Results Last 24 hrs: Microbiology 05/27/21 21:05 Anaerobic Blood Culture - Final Blood - Arm, Left - Problem List (1) Metabolic acidosis SNOMED Code(s): 78481146 ICD Code: E87.2 - ACIDOSIS Status: Acute Current Visit: Yes (2) Hyperkalemia SNOMED Code(s): 85297080 ICD Code: E87.5 - HYPERKALEMIA Status: Acute Current Visit: Yes (3) Diabetes SNOMED Code(s): 83336182 ICD Code: E11.9 - TYPE 2 DIABETES MELLITUS WITHOUT COMPLICATIONS Status: Acute Current Visit: Yes (4) Gangrenous toe SNOMED Code(s): 028307905 ICD Code: I96 - GANGRENE, NOT ELSEWHERE CLASSIFIED Status: Acute Current Visit: Yes Problem List Initiated/Reviewed/Updated: Yes Orders Last 24hrs: Active Orders 24 hr Category Date Time Status Admission Diagnosis [ADT] Stat ADT 05/27/21 22:23 Ordered Admission Status [Patient Status] [ADT] Routine ADT 05/27/21 22:23 Active Blood Glucose Check, Bedside [RC] ONETIME Care 05/27/21 21:48 Active Blood Glucose Check, Bedside [RC] WITHMEALSANDBED Care 05/27/21 23:09 Ordered Oxygen Therapy [RC] PRN Care 05/27/21 23:11 Ordered Peripheral IV Care [RC] . DIRECTED Care 05/27/21 23:12 Ordered Up With Assistance [RC] ASDIRECTED Care 05/27/21 23:11 Ordered VTE/DVT Education [RC] PER UNIT ROUTINE Care 05/27/21 23:11 Ordered Vital Signs [RC] Q4H Care 05/27/21 23:11 Ordered Clear Liquid Diet [DIET] Diet 05/27/21 Breakfast Ordered BASIC METABOLIC PANEL,BMP [CHEM] Q4H Lab 05/28/21 05:15 Ordered BASIC METABOLIC PANEL,BMP [CHEM] Q4H Lab 05/28/21 09:15 Ordered BASIC METABOLIC PANEL,BMP [CHEM] Q4H Lab 05/28/21 13:15 Ordered BASIC METABOLIC PANEL,BMP [CHEM] Q4H Lab 05/28/21 17:15 Ordered BASIC METABOLIC PANEL,BMP [CHEM] Q4H Lab 05/28/21 21:15 Ordered BASIC METABOLIC PANEL,BMP [CHEM] Q4H Lab 05/29/21 01:15 Ordered CBC WITH AUTO DIFF [HEME] AM Lab 05/28/21 05:15 Ordered CULTURE BLOOD [BC] Stat Lab 05/27/21 21:05 Results CULTURE URINE [RM] Routine Lab 05/27/21 23:06 Ordered LACTIC ACID [CHEM] Q6H Lab 05/27/21 23:06 Ordered LACTIC ACID [CHEM] Q6H Lab 05/28/21 05:06 Ordered LACTIC ACID [CHEM] Q6H Lab 05/28/21 11:06 Ordered UA W/MICROSCOPIC [URIN] Routine Lab 05/27/21 23:06 Ordered Acetaminophen [TylenoL] Med 05/27/21 23:11 Ordered 650 mg PO Q4H PRN Dextrose 50% in Water Med 05/27/21 23:09 Ordered 25 ml IVPUSH ASDIRECTED PRN Furosemide [Lasix] 100 mg Med 05/27/21 23:15 Ordered Sodium Chloride 0.9% [Normal Saline] 90 ml IV CONTINUOUS Heparin Sodium Med 05/28/21 06:00 Ordered 5,000 units SUBCUT Q8HR Insulin Lispro [HumaLOG] Med 05/28/21 08:00 Ordered See Protocol SUBCUT WITHMEALSANDBED Ondansetron [Zofran] Med 05/27/21 23:11 Ordered 4 mg IVPUSH Q6H PRN Pantoprazole [ProTONIX] Med 05/28/21 09:00 Ordered 40 mg PO BID Pharmacy to Dose - Vancomycin Med 05/27/21 23:15 Ordered 1 dose .XX ASDIRECTED Piperacillin/Tazobactam [Zosyn] 2.25 gm Med 05/28/21 00:00 Ordered Sodium Chloride 0.9% [Normal Saline] 50 ml IV Q6HR Pregabalin [Lyrica] Med 05/28/21 09:00 Ordered 100 mg PO BID Sodium Bicarbonate [Sodium Bicarbonate 8.4%] 100 meq Med 05/27/21 23:08 Ordered Dextrose 5% in Water 1,000 ml IV CONTINUOUS Sodium Chloride 0.9% [Saline Flush] Med 05/28/21 09:00 Ordered 10 ml FLUSH 0900,2100 oxyCODONE HCl [Oxycodone HCl] Med 05/27/21 23:10 Ordered 5 mg PO Q6H PRN Peripheral IV Insertion Adult [OM.PC] Routine Oth 05/27/21 23:11 Ordered Saline Lock Insert [OM.PC] Routine Oth 05/27/21 23:11 Ordered Resuscitation Status Routine Resus Stat 05/27/21 23:11 Ordered Medication Orders Acetaminophen (Acetaminophen 325 Mg Tab) 650 mg PO Q4H PRN PRN Reason: Pain (Mild 1-3)/fever Dextrose/Water (50% Dextrose In Water 50 Ml Syringe) 25 ml IVPUSH ASDIRECTED PRN PRN Reason: Hypoglycemia BS<70 Heparin Sodium (Porcine) (Heparin Sodium 5,000 Units/Ml Vial) 5,000 units SUBCUT Q8HR [facility] Sodium Bicarbonate 100 meq/ (Dextrose/Water) 1,100 mls @ 75 mls/hr IV CONTINUOUS ONE Stop: 05/28/21 12:24 Furosemide 100 mg/ Sodium (Chloride) 100 mls @ 10 mls/hr IV CONTINUOUS [place] Piperacillin Sod/Tazobactam (Sod 2.25 gm/ Sodium Chloride) 50 mls @ 100 mls/hr IV Q6HR [facility] Insulin Human Lispro (Insulin Lispro 100 Units/Ml 3 Ml Vial) 0 unit SUBCUT WITHMEALSANDBED [place]; Protocol Non-Formulary Medication (Oxycodone Hcl [Oxycodone Hcl]) 5 mg PO Q6H PRN PRN Reason: mod to severe pain Ondansetron HCl (Ondansetron 4 Mg/2 Ml Sdv) 4 mg IVPUSH Q6H PRN PRN Reason: Nausea/Vomiting Pantoprazole Sodium (Pantoprazole 40 Mg Tab.Cr) 40 mg PO BID [place] Pregabalin (Pregabalin 50 Mg Cap) 100 mg PO BID [facility] Sodium Chloride (Sodium Chloride 0.9% 10 Ml Syringe) 10 ml FLUSH 0900,2100 [facility] Vancomycin HCl (Pharmacy To Dose - Vancomycin) 1 dose .XX ASDIRECTED [facility] Assessment/Plan Comment:: Acute metabolic acidosis Due to missing HD and ESRD h/o poor compliance with HD Will start bicarbonate IV drip Follow elytes frequently ESD on HD Severe, life threatening acidosis No ICU/HD available in [facility] On the state's list to find appropriate facility Hyperkalemia, hyponatremia Will start Lasix drip and bicarb drip follow elytes telemetry Influenza With diarrhea, sob Supportive tx. Does not appear very fluid overloaded likely due to diarrhea Given Lasix IV in ER hold Lasix drip for now Will monitor Urine output necrotic r. toes leukocytosis due to severe peripheral artery disease, diabetic neuropathy obtain blood cx Start vancomycin, zosyn for gangrene Will need surgery Lactic acidosis Likely a combination of esrd, metab acidosis,liver cirrhosis, possible sepsis with ischemic gangrene Trend lactate h/o htn, h/o low BP with HD follow vitals dm with neuropathy follow BS supplemental insulin and hypoglycemia protocol as needed cirrhosis of liver with ascites h/o hep c will monitor discussed code status wish to have full code status patients renal failure and metabolic acidosis is immediately life threatening spent more than 90 min critical care time 70 min stabilizing patient and 20 min attempting to find facility with higher level of care available
[2021-05-28] MEDS ORDERED: Piperacillin/Tazobactam 2.25 GM in Sodium Chloride 0.9% 50 ML IV ONE (00:15)
[2021-05-28] MEDS: Sodium Bicarbonate 100 MEQ in Dextrose 5% in Water 1,000 ML IV ONE ×4 (00:20→11:49)
[2021-05-28] MEDS ORDERED: VANCOmycin 1.5 GM/300 ML 1.5 GM in Premix Bag 1 BAG IV ONE (01:00)
[2021-05-28] MEDS: Acetaminophen 325 MG Tab PO PRN ×2 (01:19→04:59)
[2021-05-28] MEDS: Heparin Sodium 5,000 Units/ML Vial SUBCUT SCH ×3 (05:28→22:45)
[2021-05-28] MEDS: Ondansetron 4 MG/2 ML SDV IVPUSH PRN ×2 (05:28→14:18)
[2021-05-28] MEDS ORDERED: Morphine 2 MG/ML SYRINGE ONE (06:13)
[2021-05-28] MEDS: Morphine 2 MG/ML SYRINGE IVPUSH PRN ×4 (06:19→16:58)
[2021-05-28 06:51] LABS: ANION GAP 28.5 mEq/L (7-13)
[2021-05-28] MEDS: Pantoprazole 40 MG Tab.CR PO SCH ×2 (08:32→22:45)
[2021-05-28] MEDS: Pregabalin 50 MG Cap PO SCH ×2 (08:33→22:45)
[2021-05-28] MEDS: Piperacillin/Tazobactam 2.25 GM in Sodium Chloride 0.9% 50 ML IV SCH ×3 (08:37→22:16)
[2021-05-28] MEDS: Insulin Lispro 100 Units/ML 3 ML Vial SUBCUT SCH ×4 (08:40→23:18)
[2021-05-28] MEDS ORDERED: Oseltamivir 30 MG Cap PO SCH (10:00)
[2021-05-28] MEDS: Sodium Chloride 0.9% 10 ML Syringe FLUSH SCH ×5 (10:29→22:28)
--- NOTE | 2021-05-28 12:48 | PCM.PN ---
- General Info Date of Service: 05/28/21 Admission Dx/Problem (Free Text): Admission Diagnosis/Problem Admission Diagnosis/Problem Metabolic acidosis Subjective Update: No significant overnight issues. He remains on BiPAP and somewhat altered. He is in no acute distress but currently complains of chest/epigastric pain. Functional Status: Reports: Pain Controlled. Denies: Tolerating Diet, Ambulating, Urinating - Review of Systems General: Reports: Weakness. Denies: Fever, Chills, Appetite HEENT: Denies: No Symptoms Pulmonary: Reports: Shortness of Breath Cardiovascular: Reports: Chest Pain Gastrointestinal: Denies: Abdominal Pain, Nausea, Vomiting Genitourinary: Reports: No Symptoms Musculoskeletal: Reports: No Symptoms Skin: Reports: No Symptoms Neurological: Denies: Confusion Psychiatric: Denies: Anxiety, Agitation, Hallucinations - Patient Data Vitals - Most Recent: Last Vital Signs Temp 36.5 C 05/28/21 12:00 Pulse 74 05/28/21 12:00 Resp 18 05/28/21 12:00 BP 75/48 L 05/28/21 12:00 Pulse Ox 100 05/28/21 12:00 Weight - Most Recent: 95.39 kg I&O - Last 24 Hours: Intake & Output 05/27/21 05/28/21 05/28/21 22:59 06:59 14:59 Intake Total 75 120 Balance 75 120 Lab Results Last 24 Hours: Laboratory Results - last 24 hr 05/27/21 05/27/21 05/27/21 Range/Units 20:57 20:57 20:57 WBC 20.4 H (5.0-10.0) 10^3/uL RBC 4.06 L (4.6-6.2) 10^6/uL Hgb 12.3 L D (14.0-18.0) g/dL Hct 37.9 L (40.0-54.0) % MCV 93.3 (80-100) fL MCH 30.3 (27.0-34.0) pg MCHC 32.5 L (33.0-35.0) g/dL Plt Count 120 L (150-450) 10^3/uL Neut % (Auto) 90.5 H (42.2-75.2) % Lymph % (Auto) 3.2 L (20.5-50.1) % [place] % (Auto) 6.2 (2-8) % Eos % (Auto) 0.0 L (1.0-3.0) % Baso % (Auto) 0.1 (0.0-1.0) % Add Manual Diff Yes Neutrophils % (Manual) 53 (42-75) % Band Neutrophils % 34 % Lymphocytes % (Manual) 8 L (20-50) % Atypical Lymphs % 0 % Monocytes % (Manual) 5 (2-8) % Anisocytosis 1+ slight PT (9.0-12.0) SEC INR (0.9-1.2) D-Dimer, Quantitative (0-400) ng/mL Sodium 120 L D (136-145) mmol/L Potassium 6.1 H D (3.5-5.1) mmol/L Chloride 86 L D (98-107) mmol/L Carbon Dioxide 11 L (21-32) mmol/L Anion Gap 29.1 H (7-13) mEq/L BUN 75 H D (7-18) mg/dL Creatinine 16.35 H* D (0.70-1.30) mg/dL Est Cr Clr Drug Dosing TNP Estimated GFR (MDRD) 3 BUN/Creatinine Ratio 4.6 (No establ ref range) Glucose 65 L (70-99) mg/dL POC Glucose (70-99) mg/dL Lactic Acid 2.9 H* (0.4-2.0) mmol/L Calcium 7.0 L (8.5-10.1) mg/dL Phosphorus (2.6-4.7) mg/dL Magnesium 1.6 L (1.8-2.4) mg/dL Total Bilirubin 0.5 (0.2-1.0) mg/dL AST 41 H (15-37) U/L ALT 23 (16-63) U/L Alkaline Phosphatase 65 (46-116) U/L Troponin I High Sens 30 (<=76) pg/mL B-Natriuretic Peptide 355 H (0-100) pg/ml Total Protein 7.4 (6.4-8.2) g/dL Albumin 2.8 L (3.4-5.0) g/dL Globulin 4.6 Albumin/Globulin Ratio 0.61 Amylase 22 L (25-115) U/L Lipase 63 L (73-393) U/L Ethyl Alcohol < 3 (0) mg/dL Influenza Type A RNA (NEGATIVE) Influenza Type B RNA (NEGATIVE) SARS-CoV-2 RNA (BRENDA) (NEGATIVE) 05/27/21 05/27/21 05/27/21 Range/Units 20:57 21:05 21:05 WBC (5.0-10.0) 10^3/uL RBC (4.6-6.2) 10^6/uL Hgb (14.0-18.0) g/dL Hct (40.0-54.0) % MCV (80-100) fL MCH (27.0-34.0) pg MCHC (33.0-35.0) g/dL Plt Count (150-450) 10^3/uL Neut % (Auto) (42.2-75.2) % Lymph % (Auto) (20.5-50.1) % [place] % (Auto) (2-8) % Eos % (Auto) (1.0-3.0) % Baso % (Auto) (0.0-1.0) % Add Manual Diff Neutrophils % (Manual) (42-75) % Band Neutrophils % % Lymphocytes % (Manual) (20-50) % Atypical Lymphs % % Monocytes % (Manual) (2-8) % Anisocytosis PT 12.0 (9.0-12.0) SEC INR 1.2 (0.9-1.2) D-Dimer, Quantitative 2450 H (0-400) ng/mL Sodium (136-145) mmol/L Potassium (3.5-5.1) mmol/L Chloride (98-107) mmol/L Carbon Dioxide (21-32) mmol/L Anion Gap (7-13) mEq/L BUN (7-18) mg/dL Creatinine (0.70-1.30) mg/dL Est Cr Clr Drug Dosing Estimated GFR (MDRD) BUN/Creatinine Ratio (No establ ref range) Glucose (70-99) mg/dL POC Glucose (70-99) mg/dL Lactic Acid (0.4-2.0) mmol/L Calcium (8.5-10.1) mg/dL Phosphorus 8.6 H* (2.6-4.7) mg/dL Magnesium (1.8-2.4) mg/dL Total Bilirubin (0.2-1.0) mg/dL AST (15-37) U/L ALT (16-63) U/L Alkaline Phosphatase (46-116) U/L Troponin I High Sens (<=76) pg/mL B-Natriuretic Peptide (0-100) pg/ml Total Protein (6.4-8.2) g/dL Albumin (3.4-5.0) g/dL Globulin Albumin/Globulin Ratio Amylase (25-115) U/L Lipase (73-393) U/L Ethyl Alcohol (0) mg/dL Influenza Type A RNA Positive H (NEGATIVE) Influenza Type B RNA Negative (NEGATIVE) SARS-CoV-2 RNA (BRENDA) Negative (NEGATIVE) 05/27/21 05/27/21 05/28/21 Range/Units 22:54 23:20 06:24 WBC (5.0-10.0) 10^3/uL RBC (4.6-6.2) 10^6/uL Hgb (14.0-18.0) g/dL Hct (40.0-54.0) % MCV (80-100) fL MCH (27.0-34.0) pg MCHC (33.0-35.0) g/dL Plt Count (150-450) 10^3/uL Neut % (Auto) (42.2-75.2) % Lymph % (Auto) (20.5-50.1) % [place] % (Auto) (2-8) % Eos % (Auto) (1.0-3.0) % Baso % (Auto) (0.0-1.0) % Add Manual Diff Neutrophils % (Manual) (42-75) % Band Neutrophils % % Lymphocytes % (Manual) (20-50) % Atypical Lymphs % % Monocytes % (Manual) (2-8) % Anisocytosis PT (9.0-12.0) SEC INR (0.9-1.2) D-Dimer, Quantitative (0-400) ng/mL Sodium (136-145) mmol/L Potassium (3.5-5.1) mmol/L Chloride (98-107) mmol/L Carbon Dioxide (21-32) mmol/L Anion Gap (7-13) mEq/L BUN (7-18) mg/dL Creatinine (0.70-1.30) mg/dL Est Cr Clr Drug Dosing Estimated GFR (MDRD) BUN/Creatinine Ratio (No establ ref range) Glucose (70-99) mg/dL POC Glucose 109 H (70-99) mg/dL Lactic Acid 1.8 0.8 (0.4-2.0) mmol/L Calcium (8.5-10.1) mg/dL Phosphorus (2.6-4.7) mg/dL Magnesium (1.8-2.4) mg/dL Total Bilirubin (0.2-1.0) mg/dL AST (15-37) U/L ALT (16-63) U/L Alkaline Phosphatase (46-116) U/L Troponin I High Sens (<=76) pg/mL B-Natriuretic Peptide (0-100) pg/ml Total Protein (6.4-8.2) g/dL Albumin (3.4-5.0) g/dL Globulin Albumin/Globulin Ratio Amylase (25-115) U/L Lipase (73-393) U/L Ethyl Alcohol (0) mg/dL Influenza Type A RNA (NEGATIVE) Influenza Type B RNA (NEGATIVE) SARS-CoV-2 RNA (BRENDA) (NEGATIVE) 05/28/21 05/28/21 05/28/21 Range/Units 06:24 06:24 07:37 WBC 11.6 H (5.0-10.0) 10^3/uL RBC 3.49 L (4.6-6.2) 10^6/uL Hgb 10.7 L D (14.0-18.0) g/dL Hct 31.6 L (40.0-54.0) % MCV 90.5 (80-100) fL MCH 30.7 (27.0-34.0) pg MCHC 33.9 (33.0-35.0) g/dL Plt Count 91 L (150-450) 10^3/uL Neut % (Auto) 85.4 H (42.2-75.2) % Lymph % (Auto) 7.8 L (20.5-50.1) % [place] % (Auto) 6.7 (2-8) % Eos % (Auto) 0.0 L (1.0-3.0) % Baso % (Auto) 0.1 (0.0-1.0) % Add Manual Diff Neutrophils % (Manual) (42-75) % Band Neutrophils % % Lymphocytes % (Manual) (20-50) % Atypical Lymphs % % Monocytes % (Manual) (2-8) % Anisocytosis PT (9.0-12.0) SEC INR (0.9-1.2) D-Dimer, Quantitative (0-400) ng/mL Sodium 122 L (136-145) mmol/L Potassium 5.5 H (3.5-5.1) mmol/L Chloride 87 L (98-107) mmol/L Carbon Dioxide 12 L (21-32) mmol/L Anion Gap 28.5 H (7-13) mEq/L BUN 78 H (7-18) mg/dL Creatinine 15.96 H* (0.70-1.30) mg/dL Est Cr Clr Drug Dosing 5.59 Estimated GFR (MDRD) 3 BUN/Creatinine Ratio (No establ ref range) Glucose 86 (70-99) mg/dL POC Glucose 71 (70-99) mg/dL Lactic Acid (0.4-2.0) mmol/L Calcium 6.4 L (8.5-10.1) mg/dL Phosphorus (2.6-4.7) mg/dL Magnesium (1.8-2.4) mg/dL Total Bilirubin (0.2-1.0) mg/dL AST (15-37) U/L ALT (16-63) U/L Alkaline Phosphatase (46-116) U/L Troponin I High Sens (<=76) pg/mL B-Natriuretic Peptide (0-100) pg/ml Total Protein (6.4-8.2) g/dL Albumin (3.4-5.0) g/dL Globulin Albumin/Globulin Ratio Amylase (25-115) U/L Lipase (73-393) U/L Ethyl Alcohol (0) mg/dL Influenza Type A RNA (NEGATIVE) Influenza Type B RNA (NEGATIVE) SARS-CoV-2 RNA (BRENDA) (NEGATIVE) 05/28/21 Range/Units 11:24 WBC (5.0-10.0) 10^3/uL RBC (4.6-6.2) 10^6/uL Hgb (14.0-18.0) g/dL Hct (40.0-54.0) % MCV (80-100) fL MCH (27.0-34.0) pg MCHC (33.0-35.0) g/dL Plt Count (150-450) 10^3/uL Neut % (Auto) (42.2-75.2) % Lymph % (Auto) (20.5-50.1) % [place] % (Auto) (2-8) % Eos % (Auto) (1.0-3.0) % Baso % (Auto) (0.0-1.0) % Add Manual Diff Neutrophils % (Manual) (42-75) % Band Neutrophils % % Lymphocytes % (Manual) (20-50) % Atypical Lymphs % % Monocytes % (Manual) (2-8) % Anisocytosis PT (9.0-12.0) SEC INR (0.9-1.2) D-Dimer, Quantitative (0-400) ng/mL Sodium (136-145) mmol/L Potassium (3.5-5.1) mmol/L Chloride (98-107) mmol/L Carbon Dioxide (21-32) mmol/L Anion Gap (7-13) mEq/L BUN (7-18) mg/dL Creatinine (0.70-1.30) mg/dL Est Cr Clr Drug Dosing Estimated GFR (MDRD) BUN/Creatinine Ratio (No establ ref range) Glucose (70-99) mg/dL POC Glucose 94 (70-99) mg/dL Lactic Acid (0.4-2.0) mmol/L Calcium (8.5-10.1) mg/dL Phosphorus (2.6-4.7) mg/dL Magnesium (1.8-2.4) mg/dL Total Bilirubin (0.2-1.0) mg/dL AST (15-37) U/L ALT (16-63) U/L Alkaline Phosphatase (46-116) U/L Troponin I High Sens (<=76) pg/mL B-Natriuretic Peptide (0-100) pg/ml Total Protein (6.4-8.2) g/dL Albumin (3.4-5.0) g/dL Globulin Albumin/Globulin Ratio Amylase (25-115) U/L Lipase (73-393) U/L Ethyl Alcohol (0) mg/dL Influenza Type A RNA (NEGATIVE) Influenza Type B RNA (NEGATIVE) SARS-CoV-2 RNA (BRENDA) (NEGATIVE) Ebny Results Last 24 Hours: Microbiology 05/27/21 23:20 Anaerobic Blood Culture - Final Blood 05/27/21 21:05 Anaerobic Blood Culture - Final Blood - Arm, Left Med Orders - Current: Current Medications Acetaminophen (Acetaminophen 325 Mg Tab) 650 mg PO Q4H PRN PRN Reason: Pain (Mild 1-3)/fever Last Admin: 05/28/21 04:59 Dose: 650 mg Documented by: Dextrose/Water (50% Dextrose In Water 50 Ml Syringe) 25 ml IVPUSH ASDIRECTED PRN PRN Reason: Hypoglycemia BS<70 Heparin Sodium (Porcine) (Heparin Sodium 5,000 Units/Ml Vial) 5,000 units SUBCUT Q8HR [facility] Last Admin: 05/28/21 05:28 Dose: 5,000 units Documented by: Piperacillin Sod/Tazobactam (Sod 2.25 gm/ Sodium Chloride) 50 mls @ 100 mls/hr IV Q6H [facility] Last Infusion: 05/28/21 10:33 Dose: Infused Documented by: Insulin Human Lispro (Insulin Lispro 100 Units/Ml 3 Ml Vial) 0 unit SUBCUT WITHMEALSANDBED [facility]; Protocol Last Admin: 05/28/21 12:16 Dose: Not Given Documented by: Morphine Sulfate (Morphine 2 Mg/Ml Syringe) 1 mg IVPUSH Q2H PRN PRN Reason: Pain (severe 7-10) Last Admin: 05/28/21 10:55 Dose: 1 mg Documented by: Ondansetron HCl (Ondansetron 4 Mg/2 Ml Sdv) 4 mg IVPUSH Q6H PRN PRN Reason: Nausea/Vomiting Last Admin: 05/28/21 05:28 Dose: 4 mg Documented by: Oseltamivir Phosphate (Oseltamivir 30 Mg Cap) 30 mg PO Q48H [facility] Last Admin: 05/28/21 10:28 Dose: 30 mg Documented by: Oxycodone HCl (Oxycodone 5 Mg Tab) 5 mg PO Q6H PRN PRN Reason: mod to severe pain Last Admin: 05/28/21 01:18 Dose: 5 mg Documented by: Pantoprazole Sodium (Pantoprazole 40 Mg Tab.Cr) 40 mg PO BID [facility] Last Admin: 05/28/21 08:32 Dose: 40 mg Documented by: Pregabalin (Pregabalin 50 Mg Cap) 100 mg PO BID [facility] Last Admin: 05/28/21 08:33 Dose: 100 mg Documented by: Sodium Chloride (Sodium Chloride 0.9% 10 Ml Syringe) 10 ml FLUSH 0900,2100 [facility] Last Admin: 05/28/21 10:56 Dose: 10 ml Documented by: Vancomycin HCl (Pharmacy To Dose - Vancomycin) 1 dose .XX ASDIRECTED [facility] Discontinued Medications Dextrose/Water (50% Dextrose In Water 50 Ml Syringe) 50 ml IVPUSH ONETIME ONE Stop: 05/27/21 21:33 Last Admin: 05/27/21 21:35 Dose: 50 ml Documented by: Furosemide (Furosemide 40 Mg/4 Ml Vial) 40 mg IVPUSH ONETIME ONE Stop: 05/27/21 20:32 Last Admin: 05/27/21 21:05 Dose: 40 mg Documented by: Sodium Bicarbonate 100 meq/ (Dextrose/Water) 1,100 mls @ 100 mls/hr IV ONETIME ONE Stop: 05/28/21 08:44 Last Admin: 05/27/21 22:03 Dose: 100 mls/hr Documented by: Sodium Bicarbonate 100 meq/ (Dextrose/Water) 1,100 mls @ 75 mls/hr IV CONTINUOUS ONE Stop: 05/28/21 12:24 Last Admin: 05/28/21 11:49 Dose: 75 mls/hr Documented by: Furosemide 100 mg/ Sodium (Chloride) 100 mls @ 10 mls/hr IV CONTINUOUS [facility] Last Infusion: 05/28/21 10:34 Dose: 10 mls/hr Documented by: Piperacillin Sod/Tazobactam (Sod 2.25 gm/ Sodium Chloride) 50 mls @ 100 mls/hr IV ONETIME ONE Stop: 05/28/21 00:44 Last Admin: 05/28/21 01:33 Dose: 100 mls/hr Documented by: Vancomycin HCl 1.5 gm/ Premix 300 mls @ 200 mls/hr IV ONETIME ONE Stop: 05/28/21 02:29 Last Admin: 05/28/21 01:11 Dose: 200 mls/hr Documented by: Morphine Sulfate (Morphine 2 Mg/Ml Syringe) Confirm Administered Dose 2 mg .ROUTE .STK-MED ONE Stop: 05/28/21 06:14 Last Admin: 05/28/21 07:51 Dose: Not Given Documented by: Sodium Bicarbonate (Sodium Bicarbonate 8.4% 50 Meq/50 Ml Syringe) 50 meq IVPUSH ONETIME ONE Stop: 05/27/21 21:51 Last Admin: 05/27/21 22:03 Dose: 50 meq Documented by: Sodium Bicarbonate (Sodium Bicarbonate 8.4% 50 Meq/50 Ml Sdv) Confirm Administered Dose 50 meq .ROUTE .STK-MED ONE Stop: 05/27/21 22:11 Last Admin: 05/27/21 22:25 Dose: Not Given Documented by: Sodium Bicarbonate (Sodium Bicarbonate 8.4% 50 Meq/50 Ml Sdv) Confirm Administered Dose 50 meq .ROUTE .STK-MED ONE Stop: 05/27/21 22:15 Last Admin: 05/27/21 22:25 Dose: Not Given Documented by: - Exam Quality Assessment: Supplemental Oxygen, Central Line/PICC General: Alert, Cooperative, No Acute Distress HEENT: Pupils Equal, Pupils Reactive Neck: Supple, Trachea Midline, Other (presenec of a dual lumen dialysis cathete r) Lungs: Normal Respiratory Effort, Decreased Breath Sounds Cardiovascular: Regular Rate, Regular Rhythm GI/Abdominal Exam: Normal Bowel Sounds, Soft, Non-Tender, No Organomegaly, Other (Distended). No: No Distention (Male) Exam: Deferred Back Exam: Decreased Range of Motion. No: Normal Inspection Extremities: Normal Range of Motion, Non-Tender, Other (Skin lesions noted in all extremities likely due to phoshate/calcium abnormality; left below-knee amputee; missing digits on right hand). No: Normal Inspection, No Pedal Edema Skin: Dry, Intact, Cool (right distal toes), Other (Ischemic/purple-colored toes: 1st, 4th, and 5th on right foot; also left index finger) Neurological: No: Normal Gait Psy/Mental Status: Other (Lethargic). No: Normal Affect, Normal Mood, Homicidal Ideation - Patient Data Lab Results Last 24 hrs: Laboratory Results - last 24 hr 05/27/21 05/27/21 05/27/21 Range/Units 20:57 20:57 20:57 WBC 20.4 H (5.0-10.0) 10^3/uL RBC 4.06 L (4.6-6.2) 10^6/uL Hgb 12.3 L D (14.0-18.0) g/dL Hct 37.9 L (40.0-54.0) % MCV 93.3 (80-100) fL MCH 30.3 (27.0-34.0) pg MCHC 32.5 L (33.0-35.0) g/dL Plt Count 120 L (150-450) 10^3/uL Neut % (Auto) 90.5 H (42.2-75.2) % Lymph % (Auto) 3.2 L (20.5-50.1) % [place] % (Auto) 6.2 (2-8) % Eos % (Auto) 0.0 L (1.0-3.0) % Baso % (Auto) 0.1 (0.0-1.0) % Add Manual Diff Yes Neutrophils % (Manual) 53 (42-75) % Band Neutrophils % 34 % Lymphocytes % (Manual) 8 L (20-50) % Atypical Lymphs % 0 % Monocytes % (Manual) 5 (2-8) % Anisocytosis 1+ slight PT (9.0-12.0) SEC INR (0.9-1.2) D-Dimer, Quantitative (0-400) ng/mL Sodium 120 L D (136-145) mmol/L Potassium 6.1 H D (3.5-5.1) mmol/L Chloride 86 L D (98-107) mmol/L Carbon Dioxide 11 L (21-32) mmol/L Anion Gap 29.1 H (7-13) mEq/L BUN 75 H D (7-18) mg/dL Creatinine 16.35 H* D (0.70-1.30) mg/dL Est Cr Clr Drug Dosing TNP Estimated GFR (MDRD) 3 BUN/Creatinine Ratio 4.6 (No establ ref range) Glucose 65 L (70-99) mg/dL POC Glucose (70-99) mg/dL Lactic Acid 2.9 H* (0.4-2.0) mmol/L Calcium 7.0 L (8.5-10.1) mg/dL Phosphorus (2.6-4.7) mg/dL Magnesium 1.6 L (1.8-2.4) mg/dL Total Bilirubin 0.5 (0.2-1.0) mg/dL AST 41 H (15-37) U/L ALT 23 (16-63) U/L Alkaline Phosphatase 65 (46-116) U/L Troponin I High Sens 30 (<=76) pg/mL B-Natriuretic Peptide 355 H (0-100) pg/ml Total Protein 7.4 (6.4-8.2) g/dL Albumin 2.8 L (3.4-5.0) g/dL Globulin 4.6 Albumin/Globulin Ratio 0.61 Amylase 22 L (25-115) U/L Lipase 63 L (73-393) U/L Ethyl Alcohol < 3 (0) mg/dL Influenza Type A RNA (NEGATIVE) Influenza Type B RNA (NEGATIVE) SARS-CoV-2 RNA (BRENDA) (NEGATIVE) 05/27/21 05/27/21 05/27/21 Range/Units 20:57 21:05 21:05 WBC (5.0-10.0) 10^3/uL RBC (4.6-6.2) 10^6/uL Hgb (14.0-18.0) g/dL Hct (40.0-54.0) % MCV (80-100) fL MCH (27.0-34.0) pg MCHC (33.0-35.0) g/dL Plt Count (150-450) 10^3/uL Neut % (Auto) (42.2-75.2) % Lymph % (Auto) (20.5-50.1) % [place] % (Auto) (2-8) % Eos % (Auto) (1.0-3.0) % Baso % (Auto) (0.0-1.0) % Add Manual Diff Neutrophils % (Manual) (42-75) % Band Neutrophils % % Lymphocytes % (Manual) (20-50) % Atypical Lymphs % % Monocytes % (Manual) (2-8) % Anisocytosis PT 12.0 (9.0-12.0) SEC INR 1.2 (0.9-1.2) D-Dimer, Quantitative 2450 H (0-400) ng/mL Sodium (136-145) mmol/L Potassium (3.5-5.1) mmol/L Chloride (98-107) mmol/L Carbon Dioxide (21-32) mmol/L Anion Gap (7-13) mEq/L BUN (7-18) mg/dL Creatinine (0.70-1.30) mg/dL Est Cr Clr Drug Dosing Estimated GFR (MDRD) BUN/Creatinine Ratio (No establ ref range) Glucose (70-99) mg/dL POC Glucose (70-99) mg/dL Lactic Acid (0.4-2.0) mmol/L Calcium (8.5-10.1) mg/dL Phosphorus 8.6 H* (2.6-4.7) mg/dL Magnesium (1.8-2.4) mg/dL Total Bilirubin (0.2-1.0) mg/dL AST (15-37) U/L ALT (16-63) U/L Alkaline Phosphatase (46-116) U/L Troponin I High Sens (<=76) pg/mL B-Natriuretic Peptide (0-100) pg/ml Total Protein (6.4-8.2) g/dL Albumin (3.4-5.0) g/dL Globulin Albumin/Globulin Ratio Amylase (25-115) U/L Lipase (73-393) U/L Ethyl Alcohol (0) mg/dL Influenza Type A RNA Positive H (NEGATIVE) Influenza Type B RNA Negative (NEGATIVE) SARS-CoV-2 RNA (BRENDA) Negative (NEGATIVE) 05/27/21 05/27/21 05/28/21 Range/Units 22:54 23:20 06:24 WBC (5.0-10.0) 10^3/uL RBC (4.6-6.2) 10^6/uL Hgb (14.0-18.0) g/dL Hct (40.0-54.0) % MCV (80-100) fL MCH (27.0-34.0) pg MCHC (33.0-35.0) g/dL Plt Count (150-450) 10^3/uL Neut % (Auto) (42.2-75.2) % Lymph % (Auto) (20.5-50.1) % [place] % (Auto) (2-8) % Eos % (Auto) (1.0-3.0) % Baso % (Auto) (0.0-1.0) % Add Manual Diff Neutrophils % (Manual) (42-75) % Band Neutrophils % % Lymphocytes % (Manual) (20-50) % Atypical Lymphs % % Monocytes % (Manual) (2-8) % Anisocytosis PT (9.0-12.0) SEC INR (0.9-1.2) D-Dimer, Quantitative (0-400) ng/mL Sodium (136-145) mmol/L Potassium (3.5-5.1) mmol/L Chloride (98-107) mmol/L Carbon Dioxide (21-32) mmol/L Anion Gap (7-13) mEq/L BUN (7-18) mg/dL Creatinine (0.70-1.30) mg/dL Est Cr Clr Drug Dosing Estimated GFR (MDRD) BUN/Creatinine Ratio (No establ ref range) Glucose (70-99) mg/dL POC Glucose 109 H (70-99) mg/dL Lactic Acid 1.8 0.8 (0.4-2.0) mmol/L Calcium (8.5-10.1) mg/dL Phosphorus (2.6-4.7) mg/dL Magnesium (1.8-2.4) mg/dL Total Bilirubin (0.2-1.0) mg/dL AST (15-37) U/L ALT (16-63) U/L Alkaline Phosphatase (46-116) U/L Troponin I High Sens (<=76) pg/mL B-Natriuretic Peptide (0-100) pg/ml Total Protein (6.4-8.2) g/dL Albumin (3.4-5.0) g/dL Globulin Albumin/Globulin Ratio Amylase (25-115) U/L Lipase (73-393) U/L Ethyl Alcohol (0) mg/dL Influenza Type A RNA (NEGATIVE) Influenza Type B RNA (NEGATIVE) SARS-CoV-2 RNA (BRENDA) (NEGATIVE) 05/28/21 05/28/21 05/28/21 Range/Units 06:24 06:24 07:37 WBC 11.6 H (5.0-10.0) 10^3/uL RBC 3.49 L (4.6-6.2) 10^6/uL Hgb 10.7 L D (14.0-18.0) g/dL Hct 31.6 L (40.0-54.0) % MCV 90.5 (80-100) fL MCH 30.7 (27.0-34.0) pg MCHC 33.9 (33.0-35.0) g/dL Plt Count 91 L (150-450) 10^3/uL Neut % (Auto) 85.4 H (42.2-75.2) % Lymph % (Auto) 7.8 L (20.5-50.1) % [place] % (Auto) 6.7 (2-8) % Eos % (Auto) 0.0 L (1.0-3.0) % Baso % (Auto) 0.1 (0.0-1.0) % Add Manual Diff Neutrophils % (Manual) (42-75) % Band Neutrophils % % Lymphocytes % (Manual) (20-50) % Atypical Lymphs % % Monocytes % (Manual) (2-8) % Anisocytosis PT (9.0-12.0) SEC INR (0.9-1.2) D-Dimer, Quantitative (0-400) ng/mL Sodium 122 L (136-145) mmol/L Potassium 5.5 H (3.5-5.1) mmol/L Chloride 87 L (98-107) mmol/L Carbon Dioxide 12 L (21-32) mmol/L Anion Gap 28.5 H (7-13) mEq/L BUN 78 H (7-18) mg/dL Creatinine 15.96 H* (0.70-1.30) mg/dL Est Cr Clr Drug Dosing 5.59 Estimated GFR (MDRD) 3 BUN/Creatinine Ratio (No establ ref range) Glucose 86 (70-99) mg/dL POC Glucose 71 (70-99) mg/dL Lactic Acid (0.4-2.0) mmol/L Calcium 6.4 L (8.5-10.1) mg/dL Phosphorus (2.6-4.7) mg/dL Magnesium (1.8-2.4) mg/dL Total Bilirubin (0.2-1.0) mg/dL AST (15-37) U/L ALT (16-63) U/L Alkaline Phosphatase (46-116) U/L Troponin I High Sens (<=76) pg/mL B-Natriuretic Peptide (0-100) pg/ml Total Protein (6.4-8.2) g/dL Albumin (3.4-5.0) g/dL Globulin Albumin/Globulin Ratio Amylase (25-115) U/L Lipase (73-393) U/L Ethyl Alcohol (0) mg/dL Influenza Type A RNA (NEGATIVE) Influenza Type B RNA (NEGATIVE) SARS-CoV-2 RNA (BRENDA) (NEGATIVE) 05/28/21 Range/Units 11:24 WBC (5.0-10.0) 10^3/uL RBC (4.6-6.2) 10^6/uL Hgb (14.0-18.0) g/dL Hct (40.0-54.0) % MCV (80-100) fL MCH (27.0-34.0) pg MCHC (33.0-35.0) g/dL Plt Count (150-450) 10^3/uL Neut % (Auto) (42.2-75.2) % Lymph % (Auto) (20.5-50.1) % [place] % (Auto) (2-8) % Eos % (Auto) (1.0-3.0) % Baso % (Auto) (0.0-1.0) % Add Manual Diff Neutrophils % (Manual) (42-75) % Band Neutrophils % % Lymphocytes % (Manual) (20-50) % Atypical Lymphs % % Monocytes % (Manual) (2-8) % Anisocytosis PT (9.0-12.0) SEC INR (0.9-1.2) D-Dimer, Quantitative (0-400) ng/mL Sodium (136-145) mmol/L Potassium (3.5-5.1) mmol/L Chloride (98-107) mmol/L Carbon Dioxide (21-32) mmol/L Anion Gap (7-13) mEq/L BUN (7-18) mg/dL Creatinine (0.70-1.30) mg/dL Est Cr Clr Drug Dosing Estimated GFR (MDRD) BUN/Creatinine Ratio (No establ ref range) Glucose (70-99) mg/dL POC Glucose 94 (70-99) mg/dL Lactic Acid (0.4-2.0) mmol/L Calcium (8.5-10.1) mg/dL Phosphorus (2.6-4.7) mg/dL Magnesium (1.8-2.4) mg/dL Total Bilirubin (0.2-1.0) mg/dL AST (15-37) U/L ALT (16-63) U/L Alkaline Phosphatase (46-116) U/L Troponin I High Sens (<=76) pg/mL B-Natriuretic Peptide (0-100) pg/ml Total Protein (6.4-8.2) g/dL Albumin (3.4-5.0) g/dL Globulin Albumin/Globulin Ratio Amylase (25-115) U/L Lipase (73-393) U/L Ethyl Alcohol (0) mg/dL Influenza Type A RNA (NEGATIVE) Influenza Type B RNA (NEGATIVE) SARS-CoV-2 RNA (BRENDA) (NEGATIVE) Result Diagrams: 05/29/21 06:24 05/29/21 19:35 Beny Results Last 24 hrs: Microbiology 05/27/21 23:20 Anaerobic Blood Culture - Final Blood 05/27/21 21:05 Anaerobic Blood Culture - Final Blood - Arm, Left Sepsis Event Note - Evaluation Sepsis Screening Result: Possible Sepsis Risk - Focused Exam Vital Signs: Vital Signs Temp Pulse Resp BP Pulse Ox 05/28/21 12:00 36.5 C 74 18 75/48 L 100 05/28/21 08:00 36.8 C 90 23 H 117/102 H 90 L 05/28/21 03:30 37.1 C 71 22 H 113/31 L 97 - Problem List Review Problem List Initiated/Reviewed/Updated: Yes - My Orders Last 24 Hours: My Active Orders 05/28/21 10:00 Oseltamivir [Tamiflu] 30 mg PO Q48H 05/29/21 09:49 BASIC METABOLIC PANEL,BMP [CHEM] DAILY 05/30/21 09:49 BASIC METABOLIC PANEL,BMP [CHEM] DAILY 05/31/21 09:49 BASIC METABOLIC PANEL,BMP [CHEM] DAILY 06/01/21 09:49 BASIC METABOLIC PANEL,BMP [CHEM] DAILY - Assessment Assessment:: This is a 51-year-old white male with past medical history of for hypertension, hyperlipidemia, type 2 diabetes, history of hep C infection, liver cirrhosis, peripheral and retinal neuropathy, GERD, impaired vision, anemia of chronic disease, gout, vitamin D deficiency, chronic pain syndrome, relative hypotension, left below the knee amputation, and obesity who presents to the emergency department with complaints of 2-day history of worsening shortness of breath associated with diarrhea and was admitted for uremia. Assessment: Acute: Uremia Acute on chronic metabolic acidosis currently on bicarb drip Volume overload/end-stage renal disease on dialysis: Thursday, , and Thursday Nonadherence to treatment: Missed 2 sessions of dialysis Hyponatremia with sodium of 120, present on admission Hyperkalemia with potassium of 6.1, present on admission Elevated anion gap Hyperphosphatemia with phosphorus of 8.6, present on admission Hypomagnesemia with magnesium of 1.6, present on admission Mild hyperglycemia with glucose of 109 Influenza on Tamiflu Diarrhea negative on COVID test Leukocytosis likely due to stress but cannot rule out necrotic toes Necrotic/ischemic toes on Zosyn and Vancomycin versus calciphylaxis 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 We will discontinue Lasix drip since he states he no longer makes urine. Start Tamiflu 30 mg p.o. twice daily for his influenza infection. Continue to monitor electrolytes abnormality. Resume home dose Renvela and Lokelma for phosphate and potassium binders. We will inform family, he may rapidly deteriorate if were are not able to transfer him right away. Continue IV antibiotic with zosyn and vancomycin for ischemic/necrotic toes. But most importantly, transfer to tertiary level hospital for nephrology and vascular services. We will repeat BMP sometime in the evening. Serial troponin and repeat EKG in a.m. 1244: Trying to get a hold of his next of kin, Sanjana but without much success on both work and home phone numbers 1246: I was just notified that he just became considerably hypotensive with blood pressure as low as 59/42 on right arm and 49/50 on his right leg. He carries relative hypotension chronically on midodrine but I am worried at this point that this may be due to developing sepsis. We are working on trying to obtain manual blood pressure and if needed, we we may have to put him on Levophed drip. 1248: Got a hold of his and informed her of our dilemma. We made her aware that we have tried multiple places. We called 15 hospitals at 4 different states but only 2 hospitals were willing to help us out. And it is not even guaranteed that the 2 hospitals will be able to take him in right away. Given his advanced renal disease, we are concerned that he will deteriorate rapidly and become hemodynamically unstable. He is currently encephalopathic due to uremia and with worsening electrolytes abnormality, he is high risk of d eveloping life-threatening arrhythmia. I informed his that he could possibly here in our facility while waiting for placement to upper level of care. 1311: His repeat manual blood pressure is 90 over 50s. We will continue to monitor. 1330: His repeat blood pressure is now in the 80s over 30s with a MAP of 42 mm per mercury. We will go ahead and initiate Levophed drip. We will avoid IV fluids due to volume overload. 1355: Received a phone call from Dr. Melita Padgett hospitalist attending in [place], [place]. Discussed case with her and she will check with their facility if they are able to accept him. We will wait for a return call. 1429: Dr. Padgett from [place] called back to inform me that they would not be able to accept him due to none availability of beds in their facility. Critical care time spent over 3 hours. Including time: Preparing to see the patient, obtaining, reviewing previous history, medically appropriate exam/evaluation, counseling, education patient and family, ordering medications, tests, procedures, referrals and communication with other members of the healthcare team, documenting clinical information, interpreting results, notifying family member, care coordination, and numerous attempts to speak with outside providers for possible transfer to upper level of care. Overall prognosis is guarded to poor.
[2021-05-28] MEDS ORDERED: Sodium Bicarbonate 100 MEQ in Dextrose 5% in Water 1,000 ML IV ONE ×2 (13:05)
[2021-05-28] MEDS: Norepinephrine 4 MG in Dextrose 5% in Water 246 ML IV SCH ×2 (13:38)
[2021-05-28] MEDS ORDERED: Sodium Polystyrene Sulfonate 15 GM/60 ML Susp 60 ML Bot PO ONE (17:41)
[2021-05-28 17:44] LABS: ANION GAP 28.3 mEq/L (7-13)
[2021-05-28] MEDS ORDERED: Calcium Gluconate 10% 1 GM/10 ML SDV IVPUSH ONE ×2 (17:54→18:45)
[2021-05-28] MEDS ORDERED: 50% Dextrose in Water 50 ML Syringe IVPUSH ONE (17:56)
[2021-05-28] MEDS ORDERED: Glucagon,Human Recombinant 1 MG Vial IM PRN (17:57)
[2021-05-28] MEDS ORDERED: Insulin Regular, Human 100 Units/ML 3 ML Vial IV ONE (17:57)
[2021-05-28] MEDS ORDERED: 50% Dextrose in Water 50 ML Syringe IVPUSH PRN (17:57)
[2021-05-28] MEDS ORDERED: Sodium Bicarbonate 8.4% 50 MEQ/50 ML Syringe IVPUSH ONE (17:58)
[2021-05-29] MEDS: Norepinephrine 4 MG in Dextrose 5% in Water 246 ML IV SCH ×4 (02:38→12:29)
[2021-05-29] MEDS: Morphine 2 MG/ML SYRINGE IVPUSH PRN ×4 (02:46→12:22)
[2021-05-29] MEDS: Piperacillin/Tazobactam 2.25 GM in Sodium Chloride 0.9% 50 ML IV SCH ×4 (02:51→20:11)
[2021-05-29] MEDS ORDERED: Sodium Bicarbonate 100 MEQ in Dextrose 5% in Water 1,000 ML IV ONE ×2 (03:38)
[2021-05-29] MEDS: Insulin Lispro 100 Units/ML 3 ML Vial SUBCUT SCH ×4 (05:06→22:35)
[2021-05-29] MEDS: Heparin Sodium 5,000 Units/ML Vial SUBCUT SCH ×3 (05:49→22:43)
--- NOTE | 2021-05-29 07:16 | PCM.PN ---
- General Info Date of Service: 05/29/21 Admission Dx/Problem (Free Text): Admission Diagnosis/Problem Admission Diagnosis/Problem Metabolic acidosis Subjective Update: No significant overnight issues. He was mostly on BiPAP overnight. He was not able to have supper last night due to respiratory issues. His sugar and potassium levels are within normal limits. His sodium is slightly up at 124. His magnesium is slightly improved at 1.7. His CRP level is greater than 36. His troponin I high-sensitivity slightly improved to 233. He complains of no chest pain but merely abdominal cramps. He denies having nausea or vomiting. He is passing gas. His last bowel movement was a week ago. Currently, he is on 7 mcg/hr on levophed gtt. Again, we are still waiting for placement to a tertiary hospital. Functional Status: Reports: Pain Controlled, Urinating. Denies: New Symptoms - Review of Systems General: Denies: Fever, Chills Pulmonary: Reports: Shortness of Breath. Denies: Cough, Wheezing Cardiovascular: Denies: Chest Pain Gastrointestinal: Reports: Abdominal Pain. Denies: Nausea, Vomiting Genitourinary: Denies: Frequency, Urgency, Hematuria, Retention Musculoskeletal: Reports: No Symptoms Skin: Denies: Jaundice, Pallor Neurological: Reports: Weakness. Denies: Confusion, Dizziness, Seizure, Syncope Psychiatric: Denies: Depression, Anxiety, Agitation, Hallucinations, Suicidal Ideation - Patient Data Vitals - Most Recent: Last Vital Signs Temp 36.6 C 05/29/21 03:00 Pulse 86 05/29/21 03:00 Resp 22 H 05/29/21 03:00 BP 131/61 05/29/21 03:00 Pulse Ox 100 05/29/21 03:00 Weight - Most Recent: 98.339 kg I&O - Last 24 Hours: Intake & Output 05/28/21 05/29/21 05/29/21 22:59 06:59 14:59 Intake Total 100 Balance 100 Lab Results Last 24 Hours: Laboratory Results - last 24 hr 05/28/21 05/28/21 05/28/21 Range/Units 07:37 11:24 16:56 Sodium (136-145) mmol/L Potassium (3.5-5.1) mmol/L Chloride (98-107) mmol/L Carbon Dioxide (21-32) mmol/L Anion Gap (7-13) mEq/L BUN (7-18) mg/dL Creatinine (0.70-1.30) mg/dL Est Cr Clr Drug Dosing mL/min Estimated GFR (MDRD) Glucose (70-99) mg/dL POC Glucose 71 94 78 (70-99) mg/dL Calcium (8.5-10.1) mg/dL Magnesium (1.8-2.4) mg/dL Troponin I High Sens (<=76) pg/mL 05/28/21 05/28/21 05/28/21 Range/Units 17:24 17:24 21:27 Sodium 123 L (136-145) mmol/L Potassium 5.3 H (3.5-5.1) mmol/L Chloride 87 L (98-107) mmol/L Carbon Dioxide 13 L (21-32) mmol/L Anion Gap 28.3 H (7-13) mEq/L BUN 80 H (7-18) mg/dL Creatinine 15.94 H* (0.70-1.30) mg/dL Est Cr Clr Drug Dosing 5.60 mL/min Estimated GFR (MDRD) 3 Glucose 100 H (70-99) mg/dL POC Glucose 79 (70-99) mg/dL Calcium 6.4 L (8.5-10.1) mg/dL Magnesium 1.5 L (1.8-2.4) mg/dL Troponin I High Sens 107 H* (<=76) pg/mL 05/28/21 05/29/21 05/29/21 Range/Units 23:08 02:10 05:04 Sodium (136-145) mmol/L Potassium (3.5-5.1) mmol/L Chloride (98-107) mmol/L Carbon Dioxide (21-32) mmol/L Anion Gap (7-13) mEq/L BUN (7-18) mg/dL Creatinine (0.70-1.30) mg/dL Est Cr Clr Drug Dosing mL/min Estimated GFR (MDRD) Glucose (70-99) mg/dL POC Glucose 102 H 104 H (70-99) mg/dL Calcium (8.5-10.1) mg/dL Magnesium (1.8-2.4) mg/dL Troponin I High Sens 237 H* (<=76) pg/mL Beny Results Last 24 Hours: Microbiology 05/27/21 23:20 Aerobic Blood Culture - Preliminary Blood NO GROWTH AFTER 1 DAY Anaerobic Blood Culture - Final 05/27/21 21:05 Aerobic Blood Culture - Preliminary Blood - Arm, Left NO GROWTH AFTER 1 DAY Anaerobic Blood Culture - Final Med Orders - Current: Current Medications Acetaminophen (Acetaminophen 325 Mg Tab) 650 mg PO Q4H PRN PRN Reason: Pain (Mild 1-3)/fever Last Admin: 05/28/21 04:59 Dose: 650 mg Documented by: Allopurinol (Allopurinol 100 Mg Tab) 100 mg PO DAILY [facility] Dextrose/Water (50% Dextrose In Water 50 Ml Syringe) 50 ml IVPUSH Q15M PRN PRN Reason: Hypoglycemia Glucagon (Glucagon,Human Recombinant 1 Mg Vial) 1 mg IM Q15M PRN PRN Reason: Hypoglycemia Heparin Sodium (Porcine) (Heparin Sodium 5,000 Units/Ml Vial) 5,000 units SUBCUT Q8HR [facility] Last Admin: 05/29/21 05:49 Dose: 5,000 units Documented by: Piperacillin Sod/Tazobactam (Sod 2.25 gm/ Sodium Chloride) 50 mls @ 100 mls/hr IV Q6H [facility] Last Admin: 05/29/21 02:51 Dose: 75 mls/hr Documented by: Norepinephrine Bitartrate 4 mg (/ Dextrose/Water) 250 mls @ 7.5 mls/hr IV TITRATE [facility]; Protocol Last Admin: 05/29/21 02:38 Dose: 6 mcg/min, 22.5 mls/hr Documented by: Sodium Bicarbonate 100 meq/ (Dextrose/Water) 1,100 mls @ 100 mls/hr IV ONETIME ONE Stop: 05/29/21 14:37 Last Admin: 05/29/21 04:40 Dose: 100 mls/hr Documented by: Insulin Human Lispro (Insulin Lispro 100 Units/Ml 3 Ml Vial) 0 unit SUBCUT Q6H [facility]; Protocol Last Admin: 05/29/21 05:06 Dose: Not Given Documented by: Morphine Sulfate (Morphine 2 Mg/Ml Syringe) 1 mg IVPUSH Q2H PRN PRN Reason: Pain (severe 7-10) Last Admin: 05/29/21 06:35 Dose: 1 mg Documented by: Non-Formulary Medication (Calcium Acetate [Phoslo]) 2,001 mg PO TIDMEALS [facility] Non-Formulary Medication (Sevelamer Carbonate [Renvela]) 800 mg PO TIDMEALS [facility] Non-Formulary Medication (Sodium Zirconium Cyclosilicate [Lokelma]) 5 gm PO MOFR [facility] Ondansetron HCl (Ondansetron 4 Mg/2 Ml Sdv) 4 mg IVPUSH Q6H PRN PRN Reason: Nausea/Vomiting Last Admin: 05/28/21 14:18 Dose: 4 mg Documented by: Oseltamivir Phosphate (Oseltamivir 30 Mg Cap) 30 mg PO Q48H [facility] Last Admin: 05/28/21 10:28 Dose: 30 mg Documented by: Oxycodone HCl (Oxycodone 5 Mg Tab) 5 mg PO Q6H PRN PRN Reason: mod to severe pain Last Admin: 05/28/21 01:18 Dose: 5 mg Documented by: Pantoprazole Sodium (Pantoprazole 40 Mg Tab.Cr) 40 mg PO BID [facility] Last Admin: 05/28/21 22:45 Dose: 40 mg Documented by: Pregabalin (Pregabalin 50 Mg Cap) 100 mg PO BID [facility] Last Admin: 05/28/21 22:45 Dose: 100 mg Documented by: Sodium Chloride (Sodium Chloride 0.9% 10 Ml Syringe) 10 ml FLUSH 0900,2100 [facility] Last Admin: 05/28/21 22:28 Dose: 10 ml Documented by: Vancomycin HCl (Pharmacy To Dose - Vancomycin) 1 dose .XX ASDIRECTED [place] Discontinued Medications Calcium Gluconate (Calcium Gluconate 10% 1 Gm/10 Ml Sdv) 2 gm IVPUSH ONETIME ONE Stop: 05/28/21 17:55 Last Admin: 05/28/21 19:59 Dose: Not Given Documented by: Calcium Gluconate (Calcium Gluconate 10% 1 Gm/10 Ml Sdv) 2 gm IVPUSH ONETIME ONE Stop: 05/28/21 18:46 Last Admin: 05/28/21 18:53 Dose: 2 gm Documented by: Dextrose/Water (50% Dextrose In Water 50 Ml Syringe) 50 ml IVPUSH ONETIME ONE Stop: 05/27/21 21:33 Last Admin: 05/27/21 21:35 Dose: 50 ml Documented by: Dextrose/Water (50% Dextrose In Water 50 Ml Syringe) 25 ml IVPUSH ASDIRECTED PRN PRN Reason: Hypoglycemia BS<70 Dextrose/Water (50% Dextrose In Water 50 Ml Syringe) 50 ml IVPUSH ONETIME ONE Stop: 05/28/21 17:57 Last Admin: 05/28/21 20:06 Dose: 50 ml Documented by: Furosemide (Furosemide 40 Mg/4 Ml Vial) 40 mg IVPUSH ONETIME ONE Stop: 05/27/21 20:32 Last Admin: 05/27/21 21:05 Dose: 40 mg Documented by: Sodium Bicarbonate 100 meq/ (Dextrose/Water) 1,100 mls @ 100 mls/hr IV ONETIME ONE Stop: 05/28/21 08:44 Last Admin: 05/27/21 22:03 Dose: 100 mls/hr Documented by: Sodium Bicarbonate 100 meq/ (Dextrose/Water) 1,100 mls @ 75 mls/hr IV CONTINUOUS ONE Stop: 05/28/21 12:24 Last Admin: 05/28/21 11:49 Dose: 75 mls/hr Documented by: Furosemide 100 mg/ Sodium (Chloride) 100 mls @ 10 mls/hr IV CONTINUOUS [place] Last Infusion: 05/28/21 10:34 Dose: 10 mls/hr Documented by: Piperacillin Sod/Tazobactam (Sod 2.25 gm/ Sodium Chloride) 50 mls @ 100 mls/hr IV ONETIME ONE Stop: 05/28/21 00:44 Last Admin: 05/28/21 01:33 Dose: 100 mls/hr Documented by: Vancomycin HCl 1.5 gm/ Premix 300 mls @ 200 mls/hr IV ONETIME ONE Stop: 05/28/21 02:29 Last Admin: 05/28/21 01:11 Dose: 200 mls/hr Documented by: Sodium Bicarbonate 100 meq/ (Dextrose/Water) 1,100 mls @ 100 mls/hr IV CONTINUOUS ONE Stop: 05/29/21 00:04 Last Admin: 05/28/21 13:47 Dose: Not Given Documented by: Magnesium Sulfate/Dextrose 1 (gm/ Premix) 100 mls @ 100 mls/hr IV ONETIME ONE Stop: 05/28/21 18:55 Last Admin: 05/28/21 18:51 Dose: 100 mls/hr Documented by: Insulin Human Lispro (Insulin Lispro 100 Units/Ml 3 Ml Vial) 0 unit SUBCUT WITHMEALSANDBED [facility]; Protocol Last Admin: 05/28/21 18:19 Dose: Not Given Documented by: Insulin Human Regular (Insulin Regular, Human 100 Units/Ml 3 Ml Vial) 10 unit IV ONETIME ONE Stop: 05/28/21 17:58 Last Admin: 05/28/21 22:15 Dose: 10 units Documented by: Morphine Sulfate (Morphine 2 Mg/Ml Syringe) Confirm Administered Dose 2 mg .R OUTE .STK-MED ONE Stop: 05/28/21 06:14 Last Admin: 05/28/21 07:51 Dose: Not Given Documented by: Sodium Bicarbonate (Sodium Bicarbonate 8.4% 50 Meq/50 Ml Syringe) 50 meq IVPUSH ONETIME ONE Stop: 05/27/21 21:51 Last Admin: 05/27/21 22:03 Dose: 50 meq Documented by: Sodium Bicarbonate (Sodium Bicarbonate 8.4% 50 Meq/50 Ml Sdv) Confirm Administered Dose 50 meq .ROUTE .STK-MED ONE Stop: 05/27/21 22:11 Last Admin: 05/27/21 22:25 Dose: Not Given Documented by: Sodium Bicarbonate (Sodium Bicarbonate 8.4% 50 Meq/50 Ml Sdv) Confirm Administered Dose 50 meq .ROUTE .STK-MED ONE Stop: 05/27/21 22:15 Last Admin: 05/27/21 22:25 Dose: Not Given Documented by: Sodium Bicarbonate (Sodium Bicarbonate 8.4% 50 Meq/50 Ml Syringe) 50 meq IVPUSH ONETIME ONE Stop: 05/28/21 17:59 Last Admin: 05/28/21 22:16 Dose: 50 meq Documented by: Sodium Polystyrene Sulfonate (Sodium Polystyrene Sulfonate 15 Gm/60 Ml Susp 60 Ml Bot) 15 gm PO ONETIME ONE Stop: 05/28/21 17:42 Last Admin: 05/28/21 20:13 Dose: 15 gm Documented by: - Exam Quality Assessment: Supplemental Oxygen, DVT Prophylaxis. No: Urine Catheter General: Alert, Oriented, Cooperative, No Acute Distress HEENT: Pupils Equal, Pupils Reactive, EOMI, Mucous Membr. Moist/[place] Neck: Supple, Other (presence of dual lumen dialysis catheter) Lungs: Normal Respiratory Effort, Crackles (At the bases ) Cardiovascular: Regular Rate, Regular Rhythm GI/Abdominal Exam: Normal Bowel Sounds, Soft, Non-Tender, No Abnormal Bruit, Distended (Male) Exam: Deferred Back Exam: Normal Inspection, Decreased Range of Motion Extremities: Normal Range of Motion, Non-Tender, Other (Left below-knee amputee) Peripheral Pulses: 1+: Posterior Tibial (R), Dorsalis Pedis (R) Skin: Dry, Intact, Other (Black discoloration/necrotic/frostbite on first and fourth and fifth digits of the right foot plus index left finger) Neurological: No New Focal Deficit. No: Normal Gait Psy/Mental Status: Alert, Normal Affect, Normal Mood Physical Findings Comments:: 3rd to 5th digits amputation of the right hand - Patient Data Lab Results Last 24 hrs: Laboratory Results - last 24 hr 05/28/21 05/28/21 05/28/21 Range/Units 07:37 11:24 16:56 Sodium (136-145) mmol/L Potassium (3.5-5.1) mmol/L Chloride (98-107) mmol/L Carbon Dioxide (21-32) mmol/L Anion Gap (7-13) mEq/L BUN (7-18) mg/dL Creatinine (0.70-1.30) mg/dL Est Cr Clr Drug Dosing mL/min Estimated GFR (MDRD) Glucose (70-99) mg/dL POC Glucose 71 94 78 (70-99) mg/dL Calcium (8.5-10.1) mg/dL Magnesium (1.8-2.4) mg/dL Troponin I High Sens (<=76) pg/mL 05/28/21 05/28/21 05/28/21 Range/Units 17:24 17:24 21:27 Sodium 123 L (136-145) mmol/L Potassium 5.3 H (3.5-5.1) mmol/L Chloride 87 L (98-107) mmol/L Carbon Dioxide 13 L (21-32) mmol/L Anion Gap 28.3 H (7-13) mEq/L BUN 80 H (7-18) mg/dL Creatinine 15.94 H* (0.70-1.30) mg/dL Est Cr Clr Drug Dosing 5.60 mL/min Estimated GFR (MDRD) 3 Glucose 100 H (70-99) mg/dL POC Glucose 79 (70-99) mg/dL Calcium 6.4 L (8.5-10.1) mg/dL Magnesium 1.5 L (1.8-2.4) mg/dL Troponin I High Sens 107 H* (<=76) pg/mL 05/28/21 05/29/21 05/29/21 Range/Units 23:08 02:10 05:04 Sodium (136-145) mmol/L Potassium (3.5-5.1) mmol/L Chloride (98-107) mmol/L Carbon Dioxide (21-32) mmol/L Anion Gap (7-13) mEq/L BUN (7-18) mg/dL Creatinine (0.70-1.30) mg/dL Est Cr Clr Drug Dosing mL/min Estimated GFR (MDRD) Glucose (70-99) mg/dL POC Glucose 102 H 104 H (70-99) mg/dL Calcium (8.5-10.1) mg/dL Magnesium (1.8-2.4) mg/dL Troponin I High Sens 237 H* (<=76) pg/mL Result Diagrams: 05/29/21 06:24 05/29/21 19:35 Beny Results Last 24 hrs: Microbiology 05/27/21 23:20 Aerobic Blood Culture - Preliminary Blood NO GROWTH AFTER 1 DAY Anaerobic Blood Culture - Final 05/27/21 21:05 Aerobic Blood Culture - Preliminary Blood - Arm, Left NO GROWTH AFTER 1 DAY Anaerobic Blood Culture - Final Sepsis Event Note - Evaluation Sepsis Screening Result: Possible Sepsis Risk - Focused Exam Vital Signs: Vital Signs Temp Pulse Resp BP Pulse Ox 05/29/21 03:00 36.6 C 86 22 H 131/61 100 05/28/21 23:00 37.1 C 84 22 H 147/89 H 88 L 05/28/21 19:19 86 18 102/48 L 100 - Problem List Review Problem List Initiated/Reviewed/Updated: Yes - My Orders Last 24 Hours: My Active Orders 05/28/21 10:00 Oseltamivir [Tamiflu] 30 mg PO Q48H 05/28/21 13:45 Telemetry Monitoring [Cardiac Monitoring] [RC] 08,20 Norepinephrine [Levophed] 4 mg Dextrose 5% in Water 246 ml IV TITRATE 05/28/21 17:57 Dextrose 50% in Water 50 ml IVPUSH Q15M PRN Glucagon,Human Recombinant [GlucaGen] 1 mg IM Q15M PRN 05/28/21 18:12 POC Glucose [Blood Glucose Check, Bedside] [RC] 23,05,11,17 01/11/22 18:13 Communication Order [RC] ROUTINE 05/28/21 22:59 Communication Order [RC] 08,20 05/28/21 23:00 Insulin Lispro [HumaLOG] See Protocol SUBCUT Q6H 05/29/21 03:38 Sodium Bicarbonate [Sodium Bicarbonate 8.4%] 100 meq Dextrose 5% in Water 1,00 0 ml IV ONETIME 05/29/21 06:00 EKG 12 Lead [EKG Documentation Completion] [RC] AM 05/29/21 06:24 BASIC METABOLIC PANEL,BMP [CHEM] DAILY CBC WITH AUTO DIFF [HEME] DAILY CRP [C-REACTIVE PROTEIN] [CHEM] DAILY ESR [SEDIMENTATION RATE MANUAL] [HEME] DAILY LACTIC ACID [CHEM] Routine MAGNESIUM [CHEM] DAILY PROCALCITONIN [REF] Routine TROPONIN I HIGH SENSITIVITY [CHEM] Q6H 05/29/21 08:00 Central Line Assessment [RC] Q12H Calcium Acetate [PhosLo] 2,001 mg PO TIDMEALS Sevelamer Carbonate [Renvela] 800 mg PO TIDMEALS 05/29/21 09:00 allopurinoL [Zyloprim] 100 mg PO DAILY 05/29/21 12:00 TROPONIN I HIGH SENSITIVITY [CHEM] Q6H 05/30/21 06:00 CBC WITH AUTO DIFF [HEME] DAILY CRP [C-REACTIVE PROTEIN] [CHEM] DAILY ESR [SEDIMENTATION RATE MANUAL] [HEME] DAILY MAGNESIUM [CHEM] DAILY 05/30/21 09:49 BASIC METABOLIC PANEL,BMP [CHEM] DAILY 05/31/21 06:00 CBC WITH AUTO DIFF [HEME] DAILY CRP [C-REACTIVE PROTEIN] [CHEM] DAILY ESR [SEDIMENTATION RATE MANUAL] [HEME] DAILY MAGNESIUM [CHEM] DAILY 05/31/21 09:49 BASIC METABOLIC PANEL,BMP [CHEM] DAILY 05/31/21 21:22 Sodium Zirconium Cyclosilicate [Lokelma] 5 gm PO MOFR 06/01/21 06:00 CBC WITH AUTO DIFF [HEME] DAILY CRP [C-REACTIVE PROTEIN] [CHEM] DAILY ESR [SEDIMENTATION RATE MANUAL] [HEME] DAILY 06/01/21 09:49 BASIC METABOLIC PANEL,BMP [CHEM] DAILY - Assessment Assessment:: This is a 51-year-old white male with past medical history of for hypertension, hyperlipidemia, type 2 diabetes, history of hep C infection, liver cirrhosis, peripheral and retinal neuropathy, GERD, impaired vision, anemia of chronic disease, gout, vitamin D deficiency, chronic pain syndrome, relative hypotension, and obesity who presents to the emergency department with complaints of 2-day history of worsening shortness of breath associated with diarrhea and was admitted for uremia. Assessment: Acute: Uremia/metabolic encephalopathy Acute on chronic metabolic acidosis currently on bicarb drip Volume overload/end-stage renal disease on dialysis: Thursday, , and Thursday Nonadherence to treatment: Missed 2 sessions of dialysis Hyponatremia with sodium of 120, present on admission; improved to 124 Hyperkalemia with potassium of 6.1, present on admission; resolved Elevated anion gap Hyperphosphatemia with phosphorus of 8.6, present on admission Hypomagnesemia with magnesium of 1.6, present on admission; slightly improved to 1.7 Hyperglycemia with glucose of 1169, he did not eat supper last night Influenza on Tamiflu Diarrhea negative on COVID test Leukocytosis likely due to stress but cannot rule out necrotic toes; now at 12.7 Necrotic/ischemic toes on Zosyn and Vancomycin versus calciphylaxis 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 Continue to monitor electrolytes abnormality. Resume home dose Renvela and Lokelma for phosphate and potassium binders. Continue IV antibiotic with zosyn and vancomycin for ischemic/necrotic toes. Re-scan bladder and doppler check on right foot and left upper extremity. Routine AM labs. Need stat transfer to a tertiary facility with nephrology services. Critical care time spent > 45mins. Including time: Preparing to see the patient, obtaining, reviewing/interpreting morning labs, medically appropriate exam/evaluation, ordering medications, procedures, communication with other members of the healthcare team, and documenting clinical information. Overall prognosis is guarded. 184: We did not get any phone calls today from outlying facilities regarding his possible transfer.
[2021-05-29 08:04] LABS: ANION GAP 28.1 mEq/L (7-13)
[2021-05-29] MEDS ORDERED: Allopurinol 100 MG Tab PO SCH (09:00)
[2021-05-29] MEDS: Pregabalin 50 MG Cap PO SCH ×2 (09:58→20:15)
[2021-05-29] MEDS: Pantoprazole 40 MG Tab.CR PO SCH ×2 (09:58→20:15)
[2021-05-29] MEDS: Sodium Chloride 0.9% 10 ML Syringe FLUSH SCH ×2 (11:48→22:32)
[2021-05-29] MEDS ORDERED: SEVELAMER CARBONATE 800 MG PO SCH (17:00)
[2021-05-29] MEDS ORDERED: CALCIUM ACETATE PO SCH (17:00)
[2021-05-29 20:06] LABS: ANION GAP 27.6 mEq/L (7-13)
[2021-05-29] MEDS ORDERED: DEXTROSE 10% IV ONE ×2 (21:40)
[2021-05-29] MEDS ORDERED: SODIUM BICARBONATE IV ONE ×2 (21:40)
[2021-05-29] MEDS ORDERED: WATER IV ONE ×2 (21:40)
[2021-05-29] MEDS ORDERED: Naloxone 2 MG/2 ML Syringe IVPUSH ONE ×2 (22:09→22:12)
[2021-05-29] MEDS ORDERED: Sodium Bicarbonate 8.4% 50 MEQ/50 ML SDV ONE (22:23)
[2021-05-29] MEDS ORDERED: Dextrose 10% in Water 500 ML ONE (22:28)
--- NOTE | 2021-05-29 22:42 | PCM.SN.2 ---
- Free Text/Narrative Note: Patient seen and examined at bedside. He is unresponsive with sternal rub-this is new from earlier today. 2 mg of IVP Narcan administered prior to my examination of him. We attempted to reach his multiple times at [phone] but w/o any success. We will try to obtain a stat ABG and chest x- ray. 2251: Also tried [phone] and [phone] both calls without any success. His repeat x-ray shows significant pulmonary edema/volume overload which is new from previous imaging study. 2308: Patient is now alert and awake. He opens his eyes and he is talking. Informed night nurse to be careful with narcotics and or benzodiazepines.
--- NOTE | 2021-05-29 23:06 | CR ---
PROCEDURE INFORMATION: Exam: XR Chest Exam date and time: 05/29/2021 10:49 PM Age: 51 years old Clinical indication: Other: Sob/volume overload TECHNIQUE: Imaging protocol: XR of the chest. Views: 1 view. COMPARISON: CR Chest 1V Frontal 05/27/2021 8:43 PM FINDINGS: Tubes, catheters and devices: Cardiac lead wires are present. Lungs: Bilateral areas of parenchymal opacification are now present. These are compatible with fluid overload. Pleural spaces: Unremarkable. No pleural effusion. No pneumothorax. Heart/Mediastinum: Unremarkable. No cardiomegaly. Bones/joints: Unremarkable. IMPRESSION: Interval change as above.
[2021-05-29 23:11] LABS: BASE EXCESS ARTERIAL -9 mmol/L ((-2)-(+3)); BICARBONATE,ARTERIAL 15.7 mmol/L (22-26); O2 DELIVERY DEVICE BIPAP; O2 SATURATION ARTERIAL 99 % (95-100); PCO2 ARTERIAL 33 mmHg (35-45); PO2 ARTERIAL 425 mmHg (70-100)
[2021-05-29 23:20] LABS: O2 FLOW RATE 100
[2021-05-30] MEDS: Morphine 2 MG/ML SYRINGE IVPUSH PRN ×3 (00:38→08:21)
[2021-05-30] MEDS: Piperacillin/Tazobactam 2.25 GM in Sodium Chloride 0.9% 50 ML IV SCH (02:18)
[2021-05-30] MEDS: Norepinephrine 4 MG in Dextrose 5% in Water 246 ML IV SCH ×2 (02:21)
[2021-05-30] MEDS: Heparin Sodium 5,000 Units/ML Vial SUBCUT SCH (06:20)
--- NOTE | 2021-05-30 06:24 | PCM.SN.2 ---
- Free Text/Narrative Note: 0623: Received a phone call from [facility]. Discussed case with Dr. De La Cruz who agreed to accept him. 0635 was the effective time of acceptance. We let his family know as soon as we get a hold of them.
[2021-05-30 06:36] LABS: ANION GAP 26.4 mEq/L (7-13)
--- NOTE | 2021-05-30 06:40 | PCM.DCSUM1 ---
Discharge Summary - Hospital Course Brief History: This is a 51-year-old white male with past medical history of for hypertension, hyperlipidemia, type 2 diabetes, history of hep C infection, liver cirrhosis, peripheral and retinal neuropathy, GERD, impaired vision, anemia of chronic disease, gout, vitamin D deficiency, chronic pain syndrome, relative hypotension, and obesity who presents to the emergency department with complaints of 2-day history of worsening shortness of breath associated with diarrhea and was admitted for uremia. Diagnosis: Stroke: No Modified [place] Scale: No Symptoms at All Modified [place] Scale Score: 0 - Discharge Data Discharge Date: 05/30/21 Discharge Disposition: DC/Tfer to Acute Hospital 02 Condition: Serious - Referral to Home Health Primary Care Physician: PCP None - Patient Summary/Data Operative Procedure(s) Performed: None Complications: None Labs Pending at D/C: None Hospital Course: Patient was primarily admitted for uremia and severe metabolic acidosis related to end-stage renal dialysis. He also presented with clinical signs of developing sepsis and therefore we activated sepsis protocol. He has been receiving intravenous IV zosyn and vancomycin for empiric IV antibiotics since admission. He was initially put on lasix and bicarb drips. However due to anuria, we immediately discontinued his lasix gtt. We instead continued his bicarb drip along with his home renal medications (Renvela and PhosLo) to prevent worsening of his metabolic acidosis. Last night he became unresponsive but improved with a one-time dose of Narcan. Since then he has not had any eventful events. Throughout his entire stay, he has been receiving renally dosed tamiflu for influenza A infection. He has been afebrile since admission. At bedside this morning, he is fully alert/awake and conversive. I informed him that he will be transferring to [facility] for upper level of care. He will be under the services of Dr. De La Cruz, oracle applications developer. - Patient Instructions Diet: Heart Healthy Diet, Low Sodium, Diabetic Diet, Renal Diet Activity: Bedrest Driving: Do Not Drive Showering/Bathing: May Shower Notify Provider of: Fever, Increased Pain, Swelling and Redness, Drainage, Nausea and/or Vomiting - Discharge Plan *PRESCRIPTION DRUG MONITORING PROGRAM REVIEWED*: No *COPY OF PRESCRIPTION DRUG MONITORING REPORT IN PATIENT JIM: No Home Medications: Home Meds Aspirin [Halfprin] 81 mg PO DAILY 04/27/13 [History] Allopurinol [Zyloprim] 100 mg PO DAILY 03/23/17 [History] Fenofibric Acid (Choline) [Fenofibric Acid] 45 mg PO BEDTIME 03/23/17 [History] Furosemide [Lasix] 80 mg PO BID 03/23/17 [History] Pantoprazole Sodium 40 mg PO BID 03/23/17 [History] Pregabalin [Lyrica] 100 mg PO TUTHSA 03/23/17 [History] Calcium Acetate [PhosLo] 2,001 mg PO TIDMEALS 09/21/19 [History] Pregabalin [Lyrica] 50 mg PO TUTHSA PRN 09/21/19 [History] metOLazone [Metolazone] 2.5 mg PO DAILY 09/21/19 [History] Acetaminophen [Tylenol Arthritis Pain] 650 mg PO Q8H PRN 08/03/20 [History] Cholecalciferol (Vitamin D3) [Vitamin D3] 1,000 units PO DAILY 08/03/20 [History] Cyanocobalamin/Folic AC/Vit B6 [B Complex-Folic Acid] 1 tab PO DAILY 08/03/20 [History] Magnesium Oxide [Mag-Oxide] 800 mg PO DAILY 08/03/20 [History] oxyCODONE HCl [Oxycodone HCl] 5 mg PO Q6H 08/03/20 [History] Sevelamer Carbonate [Renvela] 800 mg PO TIDMEALS 05/28/21 [History] Sodium Zirconium Cyclosilicate [Lokelma] 5 gm PO MOFR 05/28/21 [History] Oxygen Therapy Mode: BiPAP - Discharge Summary/Plan Comment DC Time >30 min.: Yes Total # of Minutes for Discharge Time: > 30 mins Discharge Summary/Plan Comment: Transfer to [facility] under the services of Dr. De La Cruz, oracle applications developer - General Info Date of Service: 05/30/21 Admission Dx/Problem (Free Text: Admission Diagnosis/Problem Admission Diagnosis/Problem Metabolic acidosis Subjective Update: No significant overnight issues. He was mostly on BiPAP overnight. He was not able to have supper last night due to respiratory issues. His sugar and potassium levels are within normal limits. His sodium is slightly up at 124. His magnesium is slightly improved at 1.7. His CRP level is greater than 36. His troponin I high-sensitivity slightly improved to 233. He complains of no chest pain but merely abdominal cramps. He denies having nausea or vomiting. He is passing gas. His last bowel movement was a week ago. Currently, he is on 7 mcg/hr on levophed gtt. Again, we are still waiting for placement to a tertiary hospital. Functional Status: Reports: Pain Controlled. Denies: New Symptoms - Review of Systems General: Denies: Fever, Chills HEENT: Denies: Contact Lenses Pulmonary: Denies: Shortness of Breath Cardiovascular: Denies: Chest Pain Gastrointestinal: Denies: Abdominal Pain, Nausea, Vomiting Genitourinary: Reports: No Symptoms Musculoskeletal: Reports: No Symptoms Skin: Denies: Pallor Neurological: Denies: Confusion Psychiatric: Denies: Depression, Anxiety, Hallucinations - Patient Data Vitals - Most Recent: Last Vital Signs Temp 36.8 C 05/30/21 04:00 Pulse 85 05/30/21 04:00 Resp 16 05/30/21 04:00 BP 113/98 H 05/30/21 04:00 Pulse Ox 100 05/30/21 04:00 Weight - Most Recent: 98.339 kg I&O - Last 24 hours: Intake & Output 05/29/21 05/29/21 05/30/21 14:59 22:59 06:59 Intake Total 200 120 Balance 200 120 Lab Results - Last 24 hrs: Laboratory Results - last 24 hr 05/29/21 05/29/21 05/29/21 Range/Units 06:24 06:24 06:24 WBC 12.7 H (5.0-10.0) 10^3/uL RBC 3.99 L (4.6-6.2) 10^6/uL Hgb 12.2 L D (14.0-18.0) g/dL Hct 35.3 L (40.0-54.0) % MCV 88.5 (80-100) fL MCH 30.6 (27.0-34.0) pg MCHC 34.6 (33.0-35.0) g/dL Plt Count 101 L (150-450) 10^3/uL Neut % (Auto) 86.7 H (42.2-75.2) % Lymph % (Auto) 6.7 L (20.5-50.1) % [facility] % (Auto) 6.4 (2-8) % Eos % (Auto) 0.1 L (1.0-3.0) % Baso % (Auto) 0.1 (0.0-1.0) % Add Manual Diff Yes Neutrophils % (Manual) 89 H (42-75) % Lymphocytes % (Manual) 4 L (20-50) % Monocytes % (Manual) 7 (2-8) % ESR 29 H (0-15) mm/hr ABG pH (7.35-7.45) ABG pCO2 (35-45) mmHg ABG pO2 (70-100) mmHg ABG HCO3 (22-26) mmol/L ABG O2 Saturation (95-100) % ABG Base Excess ((-2)-(+3)) mmol/L Joselo Test O2 Delivery Device Oxygen Flow Rate Sodium 124 L (136-145) mmol/L Potassium 5.1 (3.5-5.1) mmol/L Chloride 86 L (98-107) mmol/L Carbon Dioxide 15 L (21-32) mmol/L Anion Gap 28.1 H (7-13) mEq/L BUN 81 H (7-18) mg/dL Creatinine 16.30 H* (0.70-1.30) mg/dL Est Cr Clr Drug Dosing 5.47 mL/min Estimated GFR (MDRD) 3 Glucose 122 H (70-99) mg/dL POC Glucose (70-99) mg/dL Lactic Acid (0.4-2.0) mmol/L Calcium 7.0 L (8.5-10.1) mg/dL Magnesium 1.7 L (1.8-2.4) mg/dL Troponin I High Sens 233 H* (<=76) pg/mL C-Reactive Protein > 36.0 H (0.0-0.9) mg/dL Random Vancomycin (No Normal Range) ug/mL 05/29/21 05/29/21 05/29/21 Range/Units 06:24 07:25 11:17 WBC (5.0-10.0) 10^3/uL RBC (4.6-6.2) 10^6/uL Hgb (14.0-18.0) g/dL Hct (40.0-54.0) % MCV (80-100) fL MCH (27.0-34.0) pg MCHC (33.0-35.0) g/dL Plt Count (150-450) 10^3/uL Neut % (Auto) (42.2-75.2) % Lymph % (Auto) (20.5-50.1) % [facility] % (Auto) (2-8) % Eos % (Auto) (1.0-3.0) % Baso % (Auto) (0.0-1.0) % Add Manual Diff Neutrophils % (Manual) (42-75) % Lymphocytes % (Manual) (20-50) % Monocytes % (Manual) (2-8) % ESR (0-15) mm/hr ABG pH (7.35-7.45) ABG pCO2 (35-45) mmHg ABG pO2 (70-100) mmHg ABG HCO3 (22-26) mmol/L ABG O2 Saturation (95-100) % ABG Base Excess ((-2)-(+3)) mmol/L Joselo Test O2 Delivery Device Oxygen Flow Rate Sodium (136-145) mmol/L Potassium (3.5-5.1) mmol/L Chloride (98-107) mmol/L Carbon Dioxide (21-32) mmol/L Anion Gap (7-13) mEq/L BUN (7-18) mg/dL Creatinine (0.70-1.30) mg/dL Est Cr Clr Drug Dosing mL/min Estimated GFR (MDRD) Glucose (70-99) mg/dL POC Glucose 110 H 156 H (70-99) mg/dL Lactic Acid 1.1 (0.4-2.0) mmol/L Calcium (8.5-10.1) mg/dL Magnesium (1.8-2.4) mg/dL Troponin I High Sens (<=76) pg/mL C-Reactive Protein (0.0-0.9) mg/dL Random Vancomycin (No Normal Range) ug/mL 05/29/21 05/29/21 05/29/21 Range/Units 14:14 14:14 17:25 WBC (5.0-10.0) 10^3/uL RBC (4.6-6.2) 10^6/uL Hgb (14.0-18.0) g/dL Hct (40.0-54.0) % MCV (80-100) fL MCH (27.0-34.0) pg MCHC (33.0-35.0) g/dL Plt Count (150-450) 10^3/uL Neut % (Auto) (42.2-75.2) % Lymph % (Auto) (20.5-50.1) % [facility] % (Auto) (2-8) % Eos % (Auto) (1.0-3.0) % Baso % (Auto) (0.0-1.0) % Add Manual Diff Neutrophils % (Manual) (42-75) % Lymphocytes % (Manual) (20-50) % Monocytes % (Manual) (2-8) % ESR (0-15) mm/hr ABG pH (7.35-7.45) ABG pCO2 (35-45) mmHg ABG pO2 (70-100) mmHg ABG HCO3 (22-26) mmol/L ABG O2 Saturation (95-100) % ABG Base Excess ((-2)-(+3)) mmol/L Joselo Test O2 Delivery Device Oxygen Flow Rate Sodium (136-145) mmol/L Potassium (3.5-5.1) mmol/L Chloride (98-107) mmol/L Carbon Dioxide (21-32) mmol/L Anion Gap (7-13) mEq/L BUN (7-18) mg/dL Creatinine (0.70-1.30) mg/dL Est Cr Clr Drug Dosing mL/min Estimated GFR (MDRD) Glucose (70-99) mg/dL POC Glucose 169 H (70-99) mg/dL Lactic Acid (0.4-2.0) mmol/L Calcium (8.5-10.1) mg/dL Magnesium (1.8-2.4) mg/dL Troponin I High Sens 165 H* (<=76) pg/mL C-Reactive Protein (0.0-0.9) mg/dL Random Vancomycin 24.7 (No Normal Range) ug/mL 05/29/21 05/29/21 05/29/21 Range/Units 19:35 23:05 23:13 WBC (5.0-10.0) 10^3/uL RBC (4.6-6.2) 10^6/uL Hgb (14.0-18.0) g/dL Hct (40.0-54.0) % MCV (80-100) fL MCH (27.0-34.0) pg MCHC (33.0-35.0) g/dL Plt Count (150-450) 10^3/uL Neut % (Auto) (42.2-75.2) % Lymph % (Auto) (20.5-50.1) % [facility] % (Auto) (2-8) % Eos % (Auto) (1.0-3.0) % Baso % (Auto) (0.0-1.0) % Add Manual Diff Neutrophils % (Manual) (42-75) % Lymphocytes % (Manual) (20-50) % Monocytes % (Manual) (2-8) % ESR (0-15) mm/hr ABG pH 7.30 L (7.35-7.45) ABG pCO2 33 L (35-45) mmHg ABG pO2 425 H (70-100) mmHg ABG HCO3 15.7 L (22-26) mmol/L ABG O2 Saturation 99 (95-100) % ABG Base Excess -9 L ((-2)-(+3)) mmol/L Joselo Test lb O2 Delivery Device Bipap Oxygen Flow Rate 100 Sodium 122 L (136-145) mmol/L Potassium 5.6 H (3.5-5.1) mmol/L Chloride 84 L (98-107) mmol/L Carbon Dioxide 16 L (21-32) mmol/L Anion Gap 27.6 H (7-13) mEq/L BUN 75 H (7-18) mg/dL Creatinine 16.24 H* (0.70-1.30) mg/dL Est Cr Clr Drug Dosing 5.49 mL/min Estimated GFR (MDRD) 3 Glucose 178 H (70-99) mg/dL POC Glucose 143 H (70-99) mg/dL Lactic Acid (0.4-2.0) mmol/L Calcium 6.5 L (8.5-10.1) mg/dL Magnesium 1.7 L (1.8-2.4) mg/dL Troponin I High Sens (<=76) pg/mL C-Reactive Protein (0.0-0.9) mg/dL Random Vancomycin (No Normal Range) ug/mL 05/30/21 Range/Units 05:00 WBC (5.0-10.0) 10^3/uL RBC (4.6-6.2) 10^6/uL Hgb (14.0-18.0) g/dL Hct (40.0-54.0) % MCV (80-100) fL MCH (27.0-34.0) pg MCHC (33.0-35.0) g/dL Plt Count (150-450) 10^3/uL Neut % (Auto) (42.2-75.2) % Lymph % (Auto) (20.5-50.1) % [facility] % (Auto) (2-8) % Eos % (Auto) (1.0-3.0) % Baso % (Auto) (0.0-1.0) % Add Manual Diff Neutrophils % (Manual) (42-75) % Lymphocytes % (Manual) (20-50) % Monocytes % (Manual) (2-8) % ESR (0-15) mm/hr ABG pH (7.35-7.45) ABG pCO2 (35-45) mmHg ABG pO2 (70-100) mmHg ABG HCO3 (22-26) mmol/L ABG O2 Saturation (95-100) % ABG Base Excess ((-2)-(+3)) mmol/L Joselo Test O2 Delivery Device Oxygen Flow Rate Sodium (136-145) mmol/L Potassium (3.5-5.1) mmol/L Chloride (98-107) mmol/L Carbon Dioxide (21-32) mmol/L Anion Gap (7-13) mEq/L BUN (7-18) mg/dL Creatinine (0.70-1.30) mg/dL Est Cr Clr Drug Dosing mL/min Estimated GFR (MDRD) Glucose (70-99) mg/dL POC Glucose 137 H (70-99) mg/dL Lactic Acid (0.4-2.0) mmol/L Calcium (8.5-10.1) mg/dL Magnesium (1.8-2.4) mg/dL Troponin I High Sens (<=76) pg/mL C-Reactive Protein (0.0-0.9) mg/dL Random Vancomycin (No Normal Range) ug/mL SUSANA Results - Last 24 hrs: Microbiology 05/27/21 23:20 Aerobic Blood Culture - Preliminary Blood NO GROWTH AFTER 2 DAYS Anaerobic Blood Culture - Final 05/27/21 21:05 Aerobic Blood Culture - Preliminary Blood - Arm, Left NO GROWTH AFTER 2 DAYS Anaerobic Blood Culture - Final Med Orders - Current: Current Medications Acetaminophen (Acetaminophen 325 Mg Tab) 650 mg PO Q4H PRN PRN Reason: Pain (Mild 1-3)/fever Last Admin: 05/28/21 04:59 Dose: 650 mg Documented by: Allopurinol (Allopurinol 100 Mg Tab) 100 mg PO DAILY [facility] Last Admin: 05/29/21 09:58 Dose: 100 mg Documented by: Dextrose/Water (50% Dextrose In Water 50 Ml Syringe) 50 ml IVPUSH Q15M PRN PRN Reason: Hypoglycemia Glucagon (Glucagon,Human Recombinant 1 Mg Vial) 1 mg IM Q15M PRN PRN Reason: Hypoglycemia Heparin Sodium (Porcine) (Heparin Sodium 5,000 Units/Ml Vial) 5,000 units SUBCUT Q8HR [facility] Last Admin: 05/30/21 06:20 Dose: 5,000 units Documented by: Piperacillin Sod/Tazobactam (Sod 2.25 gm/ Sodium Chloride) 50 mls @ 100 mls/hr IV Q6H [facility] Last Admin: 05/30/21 02:18 Dose: 75 mls/hr Documented by: Norepinephrine Bitartrate 4 mg (/ Dextrose/Water) 250 mls @ 7.5 mls/hr IV TITRATE [facility]; Protocol Last Admin: 05/30/21 02:21 Dose: 4 mcg/min, 15 mls/hr Documented by: Sodium Bicarbonate 100 meq/ (Dextrose/Water) 600 mls @ 50 mls/hr IV ONETIME ONE Stop: 05/30/21 09:39 Last Admin: 05/29/21 22:42 Dose: 50 mls/hr Documented by: Insulin Human Lispro (Insulin Lispro 100 Units/Ml 3 Ml Vial) 0 unit SUBCUT Q6H [facility]; Protocol Last Admin: 05/29/21 22:35 Dose: Not Given Documented by: Morphine Sulfate (Morphine 2 Mg/Ml Syringe) 1 mg IVPUSH Q2H PRN PRN Reason: Pain (severe 7-10) Last Admin: 05/30/21 03:18 Dose: 1 mg Documented by: Ondansetron HCl (Ondansetron 4 Mg/2 Ml Sdv) 4 mg IVPUSH Q6H PRN PRN Reason: Nausea/Vomiting Last Admin: 05/28/21 14:18 Dose: 4 mg Documented by: Oseltamivir Phosphate (Oseltamivir 30 Mg Cap) 30 mg PO Q48H [facility] Last Admin: 05/28/21 10:28 Dose: 30 mg Documented by: Oxycodone HCl (Oxycodone 5 Mg Tab) 5 mg PO Q6H PRN PRN Reason: mod to severe pain Last Admin: 05/28/21 01:18 Dose: 5 mg Documented by: Pantoprazole Sodium (Pantoprazole 40 Mg Tab.Cr) 40 mg PO BID [facility] Last Admin: 05/29/21 20:15 Dose: 40 mg Documented by: Calcium Acetate [ Phoslo] 667 Cap Pt Own Med 0 each PO TIDMEALS [facility] Last Admin: 05/29/21 20:11 Dose: 1 each Documented by: Sevelamer Carbonate [Renvela] 800 Mg Tablet Pt Own Med* * 0 each PO TIDMEALS [facility] Last Admin: 05/29/21 20:11 Dose: 1 each Documented by: Sodium Zirconium Cyclosilicate [ Lokelma] 5 Gm Powd. Pack Pt Own Med 0 each PO MoFr@0900 [facility] Pregabalin (Pregabalin 50 Mg Cap) 100 mg PO BID [facility] Last Admin: 05/29/21 20:15 Dose: 100 mg Documented by: Sodium Chloride (Sodium Chloride 0.9% 10 Ml Syringe) 10 ml FLUSH 0900,2100 [facility] Last Admin: 05/29/21 22:32 Dose: Not Given Documented by: Vancomycin HCl (Pharmacy To Dose - Vancomycin) 1 dose .XX ASDIRECTED [facility] Discontinued Medications Calcium Gluconate (Calcium Gluconate 10% 1 Gm/10 Ml Sdv) 2 gm IVPUSH ONETIME ONE Stop: 05/28/21 17:55 Last Admin: 05/28/21 19:59 Dose: Not Given Documented by: Calcium Gluconate (Calcium Gluconate 10% 1 Gm/10 Ml Sdv) 2 gm IVPUSH ONETIME ONE Stop: 05/28/21 18:46 Last Admin: 05/28/21 18:53 Dose: 2 gm Documented by: Dextrose/Water (50% Dextrose In Water 50 Ml Syringe) 50 ml IVPUSH ONETIME ONE Stop: 05/27/21 21:33 Last Admin: 05/27/21 21:35 Dose: 50 ml Documented by: Dextrose/Water (50% Dextrose In Water 50 Ml Syringe) 25 ml IVPUSH ASDIRECTED PRN PRN Reason: Hypoglycemia BS<70 Dextrose/Water (50% Dextrose In Water 50 Ml Syringe) 50 ml IVPUSH ONETIME ONE Stop: 05/28/21 17:57 Last Admin: 05/28/21 20:06 Dose: 50 ml Documented by: Furosemide (Furosemide 40 Mg/4 Ml Vial) 40 mg IVPUSH ONETIME ONE Stop: 05/27/21 20:32 Last Admin: 05/27/21 21:05 Dose: 40 mg Documented by: Sodium Bicarbonate 100 meq/ (Dextrose/Water) 1,100 mls @ 100 mls/hr IV ONETIME ONE Stop: 05/28/21 08:44 Last Admin: 05/27/21 22:03 Dose: 100 mls/hr Documented by: Sodium Bicarbonate 100 meq/ (Dextrose/Water) 1,100 mls @ 75 mls/hr IV CONTINUOUS ONE Stop: 05/28/21 12:24 Last Admin: 05/28/21 11:49 Dose: 75 mls/hr Documented by: Furosemide 100 mg/ Sodium (Chloride) 100 mls @ 10 mls/hr IV CONTINUOUS [place] Last Infusion: 05/28/21 10:34 Dose: 10 mls/hr Documented by: Piperacillin Sod/Tazobactam (Sod 2.25 gm/ Sodium Chloride) 50 mls @ 100 mls/hr IV ONETIME ONE Stop: 05/28/21 00:44 Last Admin: 05/28/21 01:33 Dose: 100 mls/hr Documented by: Vancomycin HCl 1.5 gm/ Premix 300 mls @ 200 mls/hr IV ONETIME ONE Stop: 05/28/21 02:29 Last Admin: 05/28/21 01:11 Dose: 200 mls/hr Documented by: Sodium Bicarbonate 100 meq/ (Dextrose/Water) 1,100 mls @ 100 mls/hr IV CONTINUOUS ONE Stop: 05/29/21 00:04 Last Admin: 05/28/21 13:47 Dose: Not Given Documented by: Magnesium Sulfate/Dextrose 1 (gm/ Premix) 100 mls @ 100 mls/hr IV ONETIME ONE Stop: 05/28/21 18:55 Last Admin: 05/28/21 18:51 Dose: 100 mls/hr Documented by: Sodium Bicarbonate 100 meq/ (Dextrose/Water) 1,100 mls @ 100 mls/hr IV ONETIME ONE Stop: 05/29/21 14:37 Last Admin: 05/29/21 04:40 Dose: 100 mls/hr Documented by: Dextrose/Water (Dextrose 10% In Water) Confirm Administered Dose 500 mls @ as directed .ROUTE .STK-MED ONE Stop: 05/29/21 22:29 Last Admin: 05/29/21 22:43 Dose: 50 mls/hr Documented by: Insulin Human Lispro (Insulin Lispro 100 Units/Ml 3 Ml Vial) 0 unit SUBCUT WITHMEALSANDBED [place]; Protocol Last Admin: 05/28/21 18:19 Dose: Not Given Documented by: Insulin Human Regular (Insulin Regular, Human 100 Units/Ml 3 Ml Vial) 10 unit IV ONETIME ONE Stop: 05/28/21 17:58 Last Admin: 05/28/21 22:15 Dose: 10 units Documented by: Morphine Sulfate (Morphine 2 Mg/Ml Syringe) Confirm Administered Dose 2 mg .ROUTE .STK-MED ONE Stop: 05/28/21 06:14 Last Admin: 05/28/21 07:51 Dose: Not Given Documented by: Naloxone HCl (Naloxone 2 Mg/2 Ml Syringe) 2 mg IVPUSH ONETIME ONE Stop: 05/29/21 22:10 Last Admin: 05/29/21 22:22 Dose: 2 mg Documented by: Naloxone HCl (Naloxone 2 Mg/2 Ml Syringe) 2 mg IVPUSH ONETIME ONE Stop: 05/29/21 22:13 Last Admin: 05/29/21 22:18 Dose: Not Given Documented by: Sodium Bicarbonate (Sodium Bicarbonate 8.4% 50 Meq/50 Ml Syringe) 50 meq IVPUSH ONETIME ONE Stop: 05/27/21 21:51 Last Admin: 05/27/21 22:03 Dose: 50 meq Documented by: Sodium Bicarbonate (Sodium Bicarbonate 8.4% 50 Meq/50 Ml Sdv) Confirm Administered Dose 50 meq .ROUTE .STK-MED ONE Stop: 05/27/21 22:11 Last Admin: 05/27/21 22:25 Dose: Not Given Documented by: Sodium Bicarbonate (Sodium Bicarbonate 8.4% 50 Meq/50 Ml Sdv) Confirm Administered Dose 50 meq .ROUTE .STK-MED ONE Stop: 05/27/21 22:15 Last Admin: 05/27/21 22:25 Dose: Not Given Documented by: Sodium Bicarbonate (Sodium Bicarbonate 8.4% 50 Meq/50 Ml Syringe) 50 meq IVPUSH ONETIME ONE Stop: 05/28/21 17:59 Last Admin: 05/28/21 22:16 Dose: 50 meq Documented by: Sodium Bicarbonate (Sodium Bicarbonate 8.4% 50 Meq/50 Ml Sdv) Confirm Administered Dose 100 meq .ROUTE .STK-MED ONE Stop: 05/29/21 22:24 Last Admin: 05/29/21 22:44 Dose: 100 meq Documented by: Sodium Polystyrene Sulfonate (Sodium Polystyrene Sulfonate 15 Gm/60 Ml Susp 60 Ml Bot) 15 gm PO ONETIME ONE Stop: 05/28/21 17:42 Last Admin: 05/28/21 20:13 Dose: 15 gm Documented by: - Exam Quality Assessment: Reports: Supplemental Oxygen, DVT Prophylaxis General: Reports: Alert, Oriented, Cooperative HEENT: Reports: Pupils Equal, Pupils Reactive, EOMI, Mucous Membr. Moist/[place] Neck: Reports: Supple, Other (dual lumen dialysis catheter) Lungs: Reports: Normal Respiratory Effort, Decreased Breath Sounds, Crackles Cardiovascular: Reports: Regular Rate, Regular Rhythm GI/Abdominal Exam: Normal Bowel Sounds, Soft, Non-Tender, No Organomegaly, Distended (Male) Exam: Deferred Rectal (Males) Exam: Deferred Back Exam: Reports: Normal Inspection, Decreased Range of Motion Extremities: Normal Range of Motion, Normal Capillary Refill, Other (left BKA). No: Normal Inspection Skin: Reports: Warm, Dry, Other (necrosis/ischemic/black discoloration on 1st, 4th-5th digits of the right foot and on left index finger ) Neurological: Reports: No New Focal Deficit. Denies: Normal Gait Psy/Mental Status: Reports: Alert, Normal Affect, Normal Mood
[2021-05-30] MEDS: Insulin Lispro 100 Units/ML 3 ML Vial SUBCUT SCH (07:08)
[2021-05-30 07:31] VITALS: BP 125/75; PULSE 89
[2021-05-31] MEDS ORDERED: SODIUM ZIRCONIUM CYCLOSILICATE PO SCH (09:00)
== END 2021-05-30 08:43 | DRG 871 ==
LOC: DL.ED 20:18 → DL.MS 22:23
PROVIDERS: ADMIT Internal Medicine; ATTEND Internal Medicine
PROC: 5A1D70Z Performance of Urinary Filtration, Intermittent, Less than 6 Hours Per Day (ICD-10-PCS; principal; 2021-05-27)
DX: J10.1 Influenza due to other identified influenza virus with other respiratory manifestations (principal); E87.70 Fluid overload, unspecified; E87.2 Acidosis; I73.9 Peripheral vascular disease, unspecified; I96 Gangrene, not elsewhere classified; A41.9 Sepsis, unspecified organism; N18.6 End stage renal disease; G93.41 Metabolic encephalopathy; E11.42 Type 2 diabetes mellitus with diabetic polyneuropathy; E87.1 Hypo-osmolality and hyponatremia; I10 Essential (primary) hypertension; D64.9 Anemia, unspecified; I12.0 Hypertensive chronic kidney disease with stage 5 chronic kidney disease or end stage renal disease; Z86.14 Personal history of Methicillin resistant Staphylococcus aureus infection; F17.200 Nicotine dependence, unspecified, uncomplicated; Z88.8 Allergy status to other drugs, medicaments and biological substances; Z79.82 Long term (current) use of aspirin; Z79.899 Other long term (current) drug therapy; K21.9 Gastro-esophageal reflux disease without esophagitis; E87.5 Hyperkalemia; E87.6 Hypokalemia; E83.39 Other disorders of phosphorus metabolism; E83.42 Hypomagnesemia; E11.65 Type 2 diabetes mellitus with hyperglycemia; Z20.822 Contact with and (suspected) exposure to COVID-19; M10.9 Gout, unspecified; E78.5 Hyperlipidemia, unspecified; J11.1 Influenza due to unidentified influenza virus with other respiratory manifestations; R19.7 Diarrhea, unspecified; K70.31 Alcoholic cirrhosis of liver with ascites; F17.210 Nicotine dependence, cigarettes, uncomplicated; E11.22 Type 2 diabetes mellitus with diabetic chronic kidney disease; B18.2 Chronic viral hepatitis C; H54.7 Unspecified visual loss; G89.4 Chronic pain syndrome; E66.9 Obesity, unspecified; D63.1 Anemia in chronic kidney disease; E11.40 Type 2 diabetes mellitus with diabetic neuropathy, unspecified; E11.51 Type 2 diabetes mellitus with diabetic peripheral angiopathy without gangrene; Z89.439 Acquired absence of unspecified foot; Z68.36 Body mass index [BMI] 36.0-36.9, adult; Z87.01 Personal history of pneumonia (recurrent); Z90.49 Acquired absence of other specified parts of digestive tract; Z79.4 Long term (current) use of insulin; Z98.890 Other specified postprocedural states; Z90.89 Acquired absence of other organs; Z99.2 Dependence on renal dialysis; Z91.15 Patient's noncompliance with renal dialysis
CPT/HCPCS: 0240U; 36415; 36600; 71045; 80048; 80053; 80202; 80307; 82150; 82803; 82947; 83605; 83690; 83735; 83880; 84100; 84145; 84484; 85025; 85379; 85610; 85651; 86140; 87040; 93005; 94660; 96374; 96375; 99285; A9270-GY; J0610; J1644; J1815-GY; J1940; J2270; J2310; J2405; J2543; J3370; J3475; J7060